=== PATIENT | female | born 2000 | race Caucasian/White ===

== ENCOUNTER 2022-01-07 20:50 | Emergency (ER) | payer OTHER, SELFPAY ==
--- NOTE | ~2022-01-07 | CT_ITS ---
EXAMINATION: CT abdomen pelvis w con DATE: 01/07/2022 23:24 INDICATION: Right lower quadrant abdominal pain. TECHNIQUE: Computed tomography (CT) of the abdomen and pelvis was performed with 100 mL Omnipaque 350 intravenous contrast. Automated exposure control and iterative reconstruction technique were employe d. The dose-length product was 201.22 mGy-cm. COMPARISON: None. FINDINGS: The visualized portions of the lung bases are clear without pneumonia or pleural effusion. The heart size is normal. No pericardial effusion. The liver, gallbladder, spleen, pancreas, adrenal glands, and left kidney are normal. There is urothelial thickening and enhancement in the right kidne y and right ureter, consistent with pyelitis. There is an intrauterine device in expected position. T here are no dilated loops of bowel. The appendix is normal. There are no pathologically enlarged lymp h nodes. There is physiologic fluid in the pelvis. The bones are unremarkable. IMPRESSION: 1. Right-sided pyelitis. Reviewed, dictated and finalized at location A. IMPRESSION: 1. Right-sided pyelitis.
[2022-01-07 20:51] VITALS: BP 125/88; PULSE 70; RESP 16; TEMP 36.4; O2SAT 99
--- NOTE | 2022-01-07 21:39 | ED.ABDPAIN ---
HPI - Abdominal Pain General Chief Complaint: Abdominal Pain Stated Complaint: RLQ pain Time Seen by Provider: 01/07/22 21:29 History of Present Illness HPI narrative: 21-year-old female presented the emergency room with right lower quadrant cramping for 2 days. Patient is also complaining of dysuria. States pain radiates around to the flank. Denies any fevers. Reports nausea and nonbilious and nonbloody vomiting x1. Denies diarrhea or constipation. Patient has an IUD in, and remarks that she has irregular menstrual cycles. Related Data Allergies Allergy/AdvReac Type Severity Reaction Status Date / Time amoxicillin Allergy Hives Verified 01/07/22 21:37 Review of Systems Review of Systems: CONSTITUTIONAL: Denies fever, chills, or sweats. EYES: Denies visual changes, redness, or discharge. ENT: Denies rhinorrhea, congestion, sore throat, or otalgia. CARDIOVASCULAR: Denies chest pain, palpitations, or edema. RESPIRATORY: Denies cough or dyspnea. GASTROINTESTINAL: Reports right lower quadrant pain GENITOURINARY: Reports dysuria SKIN: Denies rash or itching. MUSCULOSKELETAL: Denies back pain, joint pain, or myalgia. NEUROLOGIC: Denies headache, numbness, dizziness, or weakness. PSYCHIATRIC: Denies anxiety or depression. Exam Narrative: GENERAL: Well-appearing, well-nourished, no physical limitations, and in no acute distress. HEAD: Normocephalic, atraumatic. EYES: Conjunctivae normal, PERRLA and EOMI. CHEST: Clear to auscultation. No respiratory distress. No wheezes rales or rhonchi. No tenderness. HEART: Regular rate and rhythm. No murmur heard. Normal peripheral pulses. ABDOMEN: Soft, right lower quadrant tenderness, nondistended, normal active bowel sounds. Negative heel strike. Negative psoas and obturator signs BACK: No CVA tenderness EXTREMITIES: Normal range of motion. No edema. No clubbing or cyanosis SKIN: Warm, dry, no rash. No noted wounds NEURO: No focal deficits. Alert and oriented x3. MAEW. CN's II-XI intact bilaterally, normal gait PSYCH: Cooperative. Normal mood and affect. Course Vital Signs Vital signs: Vital Signs Temperature 36.4 C 01/07/22 20:51 Pulse Rate 70 01/07/22 20:51 Respiratory Rate 16 01/07/22 20:51 Blood Pressure 125/88 01/07/22 20:51 Pulse Oximetry 99 01/07/22 20:51 Temperature 36.1 C L 01/08/22 00:00 Pulse Rate 74 01/08/22 00:00 Respiratory Rate 16 01/08/22 00:00 Blood Pressure 123/68 01/08/22 00:00 Pulse Oximetry 100 01/08/22 00:00 MDM - Abdominal Pain MDM Narrative Medical decision making narrative: 21-year-old female presented with right lower abdominal pain that radiated into her right flank. Patient states have been present for [address] days[address] Denies any fever. CT scan showed possible early right pyelonephritis. Patient was hemodynamically stable and afebrile. Slight leukocytosis. 1 g of Rocephin was given IV, will send patient home with keflex. Lab Data Result diagrams: 01/07/22 21:45 01/07/22 21:45 Labs: Lab Results 01/07/22 01/07/22 01/07/22 Range/Units 21:45 21:45 21:45 WBC 12.2 H (4.5-10.0) K/mm3 RBC 4.66 (4.2-5.4) M/mm3 Hgb 13.3 (12.0-15.0) g/dL Hct 41.0 (37.0-47.0) % MCV 88.0 (80-100) fl MCH 28.5 (26-34) pg MCHC 32.4 (32-36) g/dl RDW 14.5 (11.5-14.5) % Plt Count 385 H (150-375) k/mm3 MPV 9.4 (7.4-10.4) fl Immature Gran % (Auto) 0.3 (0-0.5) % Neut % (Auto) 78.0 H (45.5-73.1) % Lymph % (Auto) 11.0 L (18.3-44.2) % Lassen % (Auto) 8.1 (2.6-8.5) % Eos % (Auto) 1.9 (0-4.4) % Baso % (Auto) 0.7 (0.2-1.2) % Lymph # (Auto) 1.34 (0.9-3.2) K/mm3 Lassen # (Auto) 1.0 H (0.1-0.6) K/mm3 Eos # (Auto) 0.2 (0-0.3) K/mm3 Baso # (Auto) 0.1 (0.0-0.1) K/mm3 Abs Immat Gran (auto) 0.04 H (0.00-0.031) K/mm3 Absolute Neuts (auto) 9.5 H (1.3-6.7) K/mm3 Absolute Nucleated RBC 0.0 (0.0-0.012) K/mm3 Nucleated
[2022-01-07 21:41] VITALS: BP 135/87; PULSE 75; RESP 16; O2SAT 100
[2022-01-07 22:00] LABS: Basophils Absolute Auto 0.1 K/mm3 (0.0-0.1); Basophils Percent Auto 0.7 % (0.2-1.2); Eosinophils Absolute Auto 0.2 K/mm3 (0-0.3); Eosinophils Percent Auto 1.9 % (0-4.4); Hemoglobin 13.3 g/dL (12.0-15.0); Immature Granulocyte Absolute 0.04 K/mm3 (0.00-0.031); Immature Granulocyte Percent A 0.3 % (0-0.5); Lymphocytes Absolute Auto 1.34 K/mm3 (0.9-3.2); Mean Corpuscular HGB Conc 32.4 g/dl (32-36); Mean Corpuscular Hemoglobin 28.5 pg (26-34); Mean Platelet Volume 9.4 fl (7.4-10.4); Monocytes Percent Auto 8.1 % (2.6-8.5); Neutrophils Absolute Auto 9.5 K/mm3 (1.3-6.7); Platelet Count Result 385 k/mm3 (150-375); Red Blood Count 4.66 M/mm3 (4.2-5.4); Red Cell Distribution Width 14.5 % (11.5-14.5); White Blood Count 12.2 K/mm3 (4.5-10.0)
[2022-01-07 22:01] LABS: Appearance Urine Cloudy (Clear); Bilirubin Urine Negative (Negative); Blood Urine 3+ (Negative); Color Urine Yellow (Yellow); Glucose Urine UA Negative (Negative); Ketones Urine Trace mg/dL (Negative); Leukocyte Esterase Ur 3+ LEU/UL (Negative); Nitrate Urine Negative (Negative); Protein Urine 2+ mg/dL (Negative); Specific Grav Ur 1.015 (1.001-1.035); Urobilinogen Urine 0.2 mg/dL (<2.0); pH Urine 5.5 (5.0-9.0)
[2022-01-07 22:06] LABS: Add Urine Microscopic? YES; Bacteria Urine 1+ /hpf; Mucus Urine Rare /lpf; RBC Urine >75 /hpf (0-2); Squamous Epithelial Cell Urine Rare /hpf (Few); WBC Urine >75 /hpf
[2022-01-07 22:11] LABS: Alanine Aminotransferase 12 U/L (6-35); Albumin Level 4.9 g/dL (3.7-5.6); Alkaline Phosphatase 118 U/L (45-116); Anion Gap 13 mmol/L (8-16); Aspartate Amino Transferase 21 U/L (14-36); Bilirubin,Total 0.5 mg/dL (0.2-1.3); Blood Urea Nitrogen 5 mg/dL (8-21); Calcium 9.1 mg/dL (8.9-10.7); Carbon Dioxide 25 mmol/L (22-30); Chloride 99 mmol/L (98-107); Estimated CRCL calculation 81 ml/min; Estimated Glomerular Filt Rate > 60; Glucose 129 mg/dL (65-110); Lipase 14 U/L (23-300); Potassium 4.1 mmol/L (3.4-5.0); Sodium 137 mmol/L (134-143)
[2022-01-07] MEDS: MORPHINE SULFATE (*CRX) 2 MG/ML INJ IV PUSH (22:52)
[2022-01-07] MEDS: ONDANSETRON INJ 4 MG/2 ML VIAL IV PUSH (22:52)
[2022-01-07 22:53] VITALS: PULSE 62; RESP 18; O2SAT 100
--- NOTE | 2022-01-07 23:57 | PC.NURSE ---
Report given to Shayy CHAVEZ
[2022-01-08] VITALS: BP 123/68; PULSE 74; RESP 16; TEMP 36.1; O2SAT 100
[2022-01-08 01:10] VITALS: BP 130/90; PULSE 65; RESP 18; TEMP 36.1; O2SAT 100
== END 2022-01-08 01:12 | disposition home or self-care (01) ==
PROVIDERS: Emergency Provider Nurse Practitioner Family
DX: N12 Tubulo-interstitial nephritis, not specified as acute or chronic (principal)
CPT/HCPCS: 36415; 74177; 80053; 81001; 81025; 83690; 85025; 87077; 87086; 87186; 96365; 96375; 99284; J0696; J2270; J2405; Q9967

== ENCOUNTER 2024-12-10 20:11 | Inpatient (IN) | payer BC, SELFPAY ==
[2024-12-10] VITALS (8 sets, daily range): BP systolic 100–123; BP diastolic 49–79; PULSE 122–133; RESP 14–16; TEMP 36.7; O2SAT 100
--- NOTE | ~2024-12-10 | XR_ITS ---
EXAMINATION: XR chest 1V portable 12/11/2024 13:00 INDICATION: Leukocytosis PROCEDURE: AP portable chest COMPARISON: No prior studies for comparison. FINDINGS: The lungs are clear. The cardiomediastinal silhouette is within normal limits. There are no pleural effusions. There is no pneumothorax suspected. IMPRESSION: 1: NO ACUTE CARDIOPULMONARY DISEASE. Reviewed, dictated and finalized at location A.
[2024-12-10 20:48] LABS: Hematocrit 35.7 % (37.0-47.0); Hemoglobin 12.1 g/dL (12.0-15.0); Mean Corpuscular HGB Conc 33.9 g/dl (32-36); Mean Corpuscular Hemoglobin 29.4 pg (26-34); Mean Corpuscular Volume 86.9 fl (80-100); Platelet Count Result 327 k/mm3 (150-375); Red Blood Count 4.11 M/mm3 (4.2-5.4); White Blood Count 22.9 K/mm3 (4.5-10.0)
[2024-12-10 20:56] LABS: BEDSIDEPREGUCG Negative (Negative)
[2024-12-10 20:57] LABS: Add Urine Microscopic? NO; Appearance Urine Clear (Clear); Glucose Urine UA 3+ mg/dL (Negative); Leukocyte Esterase Ur Negative LEU/UL (Negative); Nitrate Urine Negative (Negative); Specific Grav Ur 1.029 (1.001-1.035)
[2024-12-10] MEDS: SODIUM CHLORIDE 0.9% IV 1,000 ML 999 ML IV CONT ×3 (21:08→23:04)
[2024-12-10 21:13] LABS: Alanine Aminotransferase 27 U/L (6-35); Albumin Level 4.1 g/dL (3.5-5.1); Alkaline Phosphatase 93 U/L (38-126); Anion Gap 21 mmol/L (4-12); Aspartate Amino Transferase 31 U/L (14-36); Bilirubin,Total 0.9 mg/dL (0.2-1.3); Blood Urea Nitrogen 18 mg/dL (7-17); Calcium 8.8 mg/dL (8.4-10.2); Carbon Dioxide 9 mmol/L (22-30); Chloride 102 mmol/L (98-107); Estimated CRCL calculation 73 ml/min; Estimated Glomerular Filt Rate > 60; Glucose 441 mg/dL (65-110); Lipase 14 U/L (23-300); Potassium 5.6 mmol/L (3.4-5.0); Sodium 132 mmol/L (137-145); Total Protein 6.7 g/dL (6.3-8.2)
--- NOTE | 2024-12-10 21:13 | PC.NURSE ---
2nd NS bolus initiated. 1st NS bolus hanging, not documented and complete. This RN updated MAR to reflect NS bolus x2.
[2024-12-10 21:14] LABS: Band Neutrophils Percent 5 % (0-6); Lymphocytes Absolute Manual 0.45 K/mm3 (1.1-4.5); Lymphocytes Percent Manual 2.0 % (18-44); Monocytes Absolute Manual 1.37 K/mm3 (0.1-0.90); Monocytes Percent Manual 6 % (3-9); Neutrophils Absolute Manual 21.06 K/mm3 (1.3-6.7); Neutrophils Percent Manual 87 % (46-73); Total Cells Counted 100
[2024-12-10 21:15] LABS: Schistocytes None Seen
--- OUTSIDE RECORDS SUMMARY | 2024-12-10 21:20 | XMS_ITS | Clinical Summary ---
Author Organization [facility] Address Formerly [facility], [facility] [place] [address] Care Team Providers Care Foundry Manager Name Role Phone Smith Carrasco DO Primary Care Provider [phone] Allergies Active Allergy Reactions Criticality Noted Date Comments Amoxicillin Hives 12/31/2018 Medications LANTUS SOLOSTAR 100 UNIT/ML injection (PEN) Inject 27 Units into the skin daily. 9 Active GLUCAGON EMERGENCY 1 MG injection Use as directed 9 Active HUMALOG 100 UNIT/ML Solution Cartridge Inject 4.5 Units into the skin daily with breakfast. 8 Active fluoxetine 10 MG capsule take 10 mg by mouth daily, 0 9 Active Insulin Lispro (HUMALOG CARTRIDGE 100 U/ML SC SOLN) Inject 5 units subcutaneously 2 times daily with lunch and dinner. Active Active Problems Problem Noted Date Diagnosed Date Hyperglycemia 01/03/2019 Ketonuria 01/03/2019 Sinus bradycardia 01/01/2019 Uncontrolled insulin dependent type 1 diabetes m ellitus 12/31/2018 Hematemesis 12/31/2018 Diabetes mellitus ([facility]) Family History Relation Status Comments Father Alive Mother Alive Social History Tobacco Use Types Packs/Day Years Used Date Smoking Tobacco: Never Smokeless Tobacco: Never Alcohol Use Standard Drinks/Week Comments No 0 (1 standard drink = 0.6 oz pur e alcohol) AUDIT-C Answer Date Recorded Frequency of Alcohol Consumption Never 01/01/2019 Average Number of Drinks Not on file 019 Frequency of Binge Drinking Not on file 12/19 Comments Unknown Sex and Gender Information Value Date Recorded Sex Assigned at Not on file Legal Sex Female 8:56 PM [employer] Gender Identity Not on file Sexual Orientation Not on file Last Filed Vital Signs Vital Sign Reading Time Taken Comments Blood Pressure 119/77 10/09/2021 7:24 PM CDT Pulse 122 10/09/2021 7:24 PM CDT Temperature 36.7 C (98.1 F) 10/09/2021 7:24 PM CDT Respiratory Rate 16 10/09/2021 7:24 PM CDT Oxygen Saturation 97% 10/09/2021 7:24 PM CDT Inhaled Oxygen Concentration - - Weight 68.1 kg (150 lb 2.1 oz) 10/09/2021 7:24 P M CDT Height 160 cm (5' 3) 10/09/2021 7:24 PM CDT Body Mass Index 26.59 10/09/2021 7:24 PM CDT Plan of Treatment Health Maintenance Due Date Last Done Comments Cervical Cancer Screening Pap Smear (Age 21 to 29) Every 3 Years 2002 Cervical Cancer Screening 2002 Kidney Health Evaluation 2002 Hemoglobin A1C 2002 Lipid Panel 2002 Annual Physical 2005 DTaP, Tdap and Td Vaccines (5 - Tdap) 2013 11/30/2003, 04/08/2003, 01/30/2003, Additional history exists HPV Vaccines (1 - 3-dose series) 2017 Meningococcal B Vaccine (1 of 2 - Standard) 2018 Diabetes: Retinopathy Eye Exam 2020 Hepatitis C 2020 Hepatitis B Vaccines (1 of 3 - 19+ 3-dose series) 2021 Pneumococcal Vaccine: Pediatrics (0 to 5 Years) and At-Risk Patients (6 to 49 Years) (1 of 2 - PCV) 2021 COVID-19 Vaccine (1 - 2023-25 season) 2024 Meningococcal Vaccine Completed 01/29/2020, 014 RSV Immunizations Under 20 Months Aged Out No longer eligible based on patient's age to complete this topic Insurance Advance Directives * Full Code (Latest Code Status on File) Date Activated Date Inactivated Comments 01/01/2019 1:56 AM 01/01/2019 7:51 PM Care Teams Foundry Manager Relationship Specialty Start Date End Date Smith Carrasco DO PCP - General FAMILY PRACTICE 10/09/21
--- OUTSIDE RECORDS SUMMARY | 2024-12-10 21:20 | XMS_ITS | Data Portability ---
Author Organization [facility], [address] [facility] ([place]) Address [address] [place] [address] Care Team Providers Care Dye Expert Name Role Phone COLE MOHAN Primary Care Provider [phone] Assessment Encounter Date Assessment Date Assessment LastModified by Organization Details LastModified Time 01/03/2024 01/03/2024 ASSESSMENT Type 1 diabetes mellitus with hyperglycemia Previous history of questionable noncompliance of insulin administration BMI 20 PLAN 1. Glycemic goals were reviewed in detail today with the patient. Changes in diabetes program as outlined in diabetes management flowsheet. Parameters for communicating the patient s glucose values to our office were discussed. Potential microvascular and macrovascular complications of hyperglycemia were reviewed with the patient at the time of the appointment. 2. Potential benefits, risks, and adverse effects of the patient s endocrine medications were reviewed at the time of the appointment. We also reviewed appropriate timing of the patient s endocrine medications with respect to meals and other medications. The patient verbalized/indicat ed understanding of all education presented. 3. Instructed on plan of care. Discussed signs and symptoms to report. Patient/caregiver aware and agreeable with plan. Return to clinic if signs/symptoms do not improve, worsen, or if new symptoms develop. The importance of achieving/maintain ing a normal BMI was discussed. 4. Diagnostic studies as outlined in this note. Further recommendations will be based on these results as well as the patient s clinical course. 5. Return to endocrine clinic in 4 months. Complete labs today. 6. Multiple changes to diabetes program as outlined in the diabetes management flowsheet. 7. New setting reflected below. Basal Bolus 00: 0.9 1:15 04: 0.95 07: 0.75 1:12 12p: 1.05 Target 120 ICR 1:50 IOB 4 hrs 8. Blood pressure at goal 118/78 9. The patient is an ideal candidate for a continuous glucose monitor (CGM). A continuous glucose monitor will improve patient safety by alerting the patient to evolving hypoglycemia. Furthermore, a personal CGM will allow the patient to more aggressively treat hyperglycemia with the assurance the patient will be notified of any developing hypoglycemia. Lessening the degree of hyperglycemia can reduce the risks of microvascular/macr ovascular complications from diabetes mellitus. 10. Emphasized importance for patient to bolus for meals and for better glucose control. 11. [employer]ic's license form filled out and returned to patient. [email or web address] Not available 01/03/2024 12:29:52 Plan of Treatment Reminders Order Date Submit Date Provider Last Modified By Organization Details Last Modified Time Details Appointments None recorded. Lab TSH, serum or plasma 2023 024 [facility], [address] [place] [address], [id number], 4 17:31:50 microalbumi n, urine 2023 024 [facility], [address] [place] [address], [id number], 4 20:15:49 lipid panel, serum 2023 024 [facility], [address] [place] [address], [id number], 4 17:31:45 vitamin B12, serum 2023 024 [facility], [facility] [address] [place] [address], [id number], 4 17:31:52 CMP, serum or plasma 2023 024 [facility], [address] [place] [address], [id number], 4 17:31:48 hemoglobin A1c + average glucose, QN, blood 2023 024 [email or web address] [facility], [address] [place] [address], [id number], 4 16:10:08 lipid panel, serum 2023 024 [email or web address] [facility], [address] [place] [address], [id number], 4 16:10:07 general health panel 2023 024 [email or web address] [facility], [address] [place] [address], [id number], 5 09:49:46 urinalysis complete, reflex culture 2023 [email or web address] [facility], [address] [place] [address], [id number], 5 09:49:46 Referral None recorded. Procedures None recorded. Surgeries None recorded. Imaging None recorded. Medication Orders trazodone 50 mg tablet 2023 024 [id number], [address], [address], 16:28:48 Patient TargetsNo targets recorded. Patient Instructions Encounter Date Encounter Id Patient Instructions Last Modified By Organization Details Last Modified Time 10/25/2023 [id number] This is a pleasant 23-year-old patient. Today she is here for a physical. She has a history of type 1 diabetes. She reports her glucose averages 90-200. She was previously seen Dr. Estrada's nurse practitioner. She would like to get in to a new provider since they left. She has concerns of insomnia. She is struggled with anxiety and panic attacks. Occasionally she will feel somewhat down but denies hopelessness or suicidal homicidal ideations. 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 She is making A's and B's. At times she feels like she struggles with the focus or the concentration. She has been on BuSpar, sertraline and several other medications in the past. She either noted side effects or did not see improvement. She was in counseling but did not feel like it was significantly helpful. Review of systems: General: Denies systemic symptoms, lethargy. HEENT: Denies eye symptoms, pain in or around the eyes, worsening vision, double vision, itchy eyes, loss of hearing, epistaxis, sore throat, mouth sores, hoarseness. Cardiovascular: Denies chest pain, shortness of breath, or chest pressure with exertion. Denies palpitations or claudication. Denies lower leg edema. Pulm: Denies dyspnea, cough, hemoptysis, wheezing. Gastrointestinal: Denies appetite changes, heartburn, dysphagia, nausea, diarrhea, constipation, abdominal pain, hematochezia. Genitourinary: Denies hematuria, urinary frequency, urgency. Skin: Denies rash, changing lesions, skin sores. Breasts: Denies breast pain, lumps. Musculoskeletal: Denies joint pain, swelling, stiffness, weakness. Neurological: Denies dizziness, recurrent headaches, syncope, memory lapses or loss, poor coordination, ataxia, difficulties in speech. Hematologic: Denies easy bruising or bleeding. Endocrine: Denies intolerance to heat or cold. GENERAL: Patient is pleasant. She's sitting comfortably on examination table. She is alert and oriented. Her affect is normal. HEENT: Normal external auditory canals. Eyes: PERRLA. EOMI. Sclera are clear. Nares patent. Mouth: Moist mucous membranes. No tonsillar hypertrophy or exudate. NECK: No adenopathy. Thyroid is normal in size. CARDIOVASCULAR: Regular rate and rhythm. Normal S1 and S2. No murmurs. RESPIRATORY: Clear to auscultation. No wheezing, rhonchi, or rales. ABDOMEN: Positive bowel sounds. Soft, nontender, nondistended. No organomegaly, no masses or nodules. SKIN: No abnormal rash or lesion. EXTREMITIES: No edema. NEURO: Cranial nerves 2 through 12 are intact. MUSCULOSKELETAL: Strength is 5 out of 5 in all extremities. Patient ambulates without difficulty. Plan: 1. General health maintenance. Patient follows with gynecology for ACUTE CARE REGISTERED NURSE care. Labs were added. Adacel was updated. She declines HPV vaccine. 2. Type 1 diabetes. Follow-up with endocrinology. 3. Anxiety. She has been on several medications in the past. She is agreeable to GeneSight testing. Will pursue accordingly. She was given a handout on coping skills. 4. Insomnia. Discussed the option of trazodone at bedtime. She was given a handout on sleep hygiene techniques. 5. Return to clinic in 3 to 4 weeks for reevaluation, sooner if needed. Patient voiced understanding [email or web address] Not available 10/25/2023 16:30:43 11/06/2023 [id number] Call with heavy bleeding, any concerns. If she decides she would like to have another IUD for cycle control at some point, ok to call. Schedule an annual for the next 3-4 months. [email or web address] Not available 11/06/2023 12:20:12 Reason for Referral None Reported. Results Created Date Observation Date Name Description Value Unit Range Abnormal Flag Note LastModifiedBy Organization Detail LastModifiedTime 01/03/20 24 01/03/2024 hemog lobin A1C, finge rstic k fingerstick A1C endo Not Available [facility] [address] [place] [address], [id number], 01/03/2024 11:42:18 01/03/20 24 01/03/2024 hemog lobin A1C, finge rstic k hemoglobin A1C, finger 9.7 %_A1C 4.3 - 5.6 high Not Available [facility] [address] [place] [address], [id number], 01/03/2024 11:42:18 01/03/20 24 01/03/2024 hemog lobin A1C, finge rstic k fingerstick estimated ave [address] Not Available [facility] [address] [place] [address], [id number], 01/03/2024 11:42:18 01/03/20 24 01/03/2024 lipid panel , serum lipid profile Not Available [facility] [address] [place] [address], [id number], 01/03/2024 17:31:45 01/03/20 24 01/03/2024 lipid panel , serum cholesterol 122 mg/dL <25-20 0 Not Available [facility] [address] [place] [address], [id number], 01/03/2024 17:31:45 01/03/20 24 01/03/2024 lipid panel , serum triglyceride 35 mg/dL 15-200 Not Available [facility] [address] [place] [address], [id number], 01/03/2024 17:31:45 01/03/20 24 01/03/2024 lipid panel , serum HDL 62 mg/dL >40 Not Available [facility] [address] [place] [address], [id number], 01/03/2024 17:31:45 01/03/20 24 01/03/2024 lipid panel , serum LDL, calculated 53 mg/dL 5-100 Not Available [facility] [address] [place] [address], [id number], 01/03/2024 17:31:45 01/03/20 24 01/03/2024 lipid panel , serum VLDL 7 mg/dL 1-40 Not Available [facility] [address] [place] [address], [id number], 01/03/2024 17:31:45 01/03/20 24 01/03/2024 lipid panel , serum chol/HDL 2.0 ratio 0.0-4. 4 Not Available [facility] [address] [place] [address], [id number], 01/03/2024 17:31:45 01/03/20 24 01/03/2024 CMP, serum or plasm a comp. met. panel Not Available [facility] [address] [place] [address], [id number], 01/03/2024 17:31:48 01/03/20 24 01/03/2024 CMP, serum or plasm a sodium 138 mmol/ L 136-14 6 Not Available [facility] [address] [place] [address], [id number], 01/03/2024 17:31:48 01/03/20 24 01/03/2024 CMP, serum or plasm a potassium 3.8 mmol/ L 3.5-5. 1 Not Available [facility] [address] [place] [address], [id number], 01/03/2024 17:31:48 01/03/20 24 01/03/2024 CMP, serum or plasm a chloride 104 mmol/ L 98-110 Not Available [facility] [address] [place] [address], [id number], 01/03/2024 17:31:48 01/03/20 24 01/03/2024 CMP, serum or plasm a CO2 28 mEq/L 20-32 Not Available [facility] [address] [place] [address], [id number], 01/03/2024 17:31:48 01/03/20 24 01/03/2024 CMP, serum or plasm a anion gap 10 mmol/ L 10-22 Not Available [facility] [address] [place] [address], 94519, 01/03/2024 17:31:48 01/03/20 24 01/03/2024 CMP, serum or plasm a glucose 61 mg/dL 70-100 low Not Available [facility] [address] [place] [address], [id number], 01/03/2024 17:31:48 01/03/20 24 01/03/2024 CMP, serum or plasm a calcium 9.2 mg/dL 8.4-10 .4 Not Available [facility] [address] [place] [address], [id number], 01/03/2024 17:31:48 01/03/20 24 01/03/2024 CMP, serum or plasm a total protein 6.7 g/dL 6.4-8. 3 Not Available [facility] [address] [place] [address], [id number], 01/03/2024 17:31:48 01/03/20 24 01/03/2024 CMP, serum or plasm a albumin 4.3 g/dL 3.5-5. 3 Not Available [facility] [address] [place] [address], 65971, 01/03/2024 17:31:48 01/03/20 24 01/03/2024 CMP, serum or plasm a ALP 68 U/L 44 - 127 Not Available [facility] [address] [place] [address], 63583, 01/03/2024 17:31:48 01/03/20 24 01/03/2024 CMP, serum or plasm a AST (SGOT) 15 U/L 10-40 Not Available [facility] [address] [place] [address], [id number], 01/03/2024 17:31:48 01/03/20 24 01/03/2024 CMP, serum or plasm a total bilirubin 0.5 mg/dL 0.2-1. 0 Not Available [facility] [address] [place] [address], 49594, 01/03/2024 17:31:48 01/03/20 24 01/03/2024 CMP, serum or plasm a ALT (SGPT) 12 U/L 8-35 Not Available [facility] [address] [place] [address], [id number], 01/03/2024 17:31:48 01/03/20 24 01/03/2024 CMP, serum or plasm a BUN 10 mg/dL 7-21 Not Available [facility] [address] [place] [address], [id number], 01/03/2024 17:31:48 01/03/20 24 01/03/2024 CMP, serum or plasm a creatinine 0.9 mg/dL 0.7-1. 3 Not Available [facility] [address] [place] [address], 68332, 01/03/2024 17:31:48 01/03/20 24 01/03/2024 CMP, serum or plasm a GFR(non-afri can central african) 84 Not Available [facility] [address] [place] [address], [id number], 01/03/2024 17:31:48 01/03/20 24 01/03/2024 CMP, serum or plasm a GFR() 102 (DISTRIBUTION SYSTEM OPERATOR LIZZIE KIDNE Y DISEA SE HAS A GFR LESS THAN 60 ML/WV N/1.7 3 MM FOR A PERIO D OF THREE MONTH S OR MORE. ) Not Available [facility] [address] [place] [address], [id number], 01/03/2024 17:31:48 01/03/20 24 01/03/2024 TSH, serum or plasm a TSH; reflex to free T4 Not Available [facility] [address] [place] [address], [id number], 01/03/2024 17:31:50 01/03/2001/03/2024 TSH, serum or plasm a TSH3 5.401 uIU/m L .340-5 .600 Not Available [facility] [address] [place] [address], 32192, 01/03/2024 17:31:50 01/03/2001/03/2024 vitam in B12, serum vitamin B12 434 pg/mL 180-91 4 <145 pg/mL = Defic ient 145 - 180 pg/mL = Inter media te Not Available [facility] [address] [place] [address], 16051, 01/03/2024 17:31:51 01/03/20 24 01/03/2024 micro album in, urine microalbumin ,random panel Not Available [facility] [address] [place] [address], [id number], 01/03/2024 20:15:49 01/03/2011 0101/03/2024 micro album in, urine microalbumin random 5.4 mg/dL Not Available [facility] [address] [place] [address], 24713, 01/03/2024 20:15:49 01/03/20 24 01/03/2024 micro album in, urine creatinine, urine random 150 mg/dL Refer ence range not estab lishe d for other than 24 hour colle ction . Not Available [facility] [address] [place] [address], [id number], 01/03/2024 20:15:49 01/03/20 24 01/03/2024 micro album in, urine microalb/cre at ratio 36 ug/mg (Micr oalbu min/C reati nine Ratio : Lizet l: <30 UG/MG Creat Micro album inuri a: 30-30 0 UG/MG Creat Clini bee Album inuri a: >300 UG/MG Creat The class ifica tion of a patie nt's prote inuri a shoul d be based upon at least 2 or 3 abnor mal resul ts colle cted withi n a 3 to 6 month time frame . *No lizet l range s have been estab lishe d for rando m Micro album in or Creat inine .) Not Available [facility] [address] [place] [address], 51704, 01/03/2024 20:15:49 03/18/20 24 06/25/2023 imagi ng/di agnos tic resul t No observ ation record ed. [email or web address] Not Available 20:33:06 09/16/19 25 06/01/2020 imagi ng/di agnos tic resul t No observ ation record ed. [email or web address] Not Available 19:12:47 09/16/19 25 06/01/2020 imagi ng/di agnos tic resul t No observ ation record ed. [email or web address] Not Available 19:12:48 07/06/20 25 04/20/2019 imagi ng/di agnos tic resul t No observ ation record ed. [email or web address] Not Available 0 11/23/2024 10:06:55 Result Notes None recorded. Problems Name Problem SNOMED Code Status Onset Date Resolution Date Notes Provider Name and Address Organization Details Recorded Time Type 1 diabetes mellitus 90398337 Active 2023 Managed by endocrinol delmy Johnson PA-C [address] [facility], [place], [address], [facility] 4 16:13:33 Mixed anxiety and depressive disorder 585379154 Active 2023 Genesight testing performed Dec 2023 Fidelina Johnson PA-C [address] , [place], [address], [facility] 4 09:28:26 Hyperlipid emia 62034878 Active 2023 Fidelina Johnson PA-C [address] , [place], [address], [facility] 4 16:13:52 Vitamin D deficiency 62581199 Active 2023 Fidelina Johnson PA-C [address] , [place], [address], [facility] 4 16:14:05 Insomnia 992577729 Active 2023 Fidelina Johnson PA-C [address] , [place], [address], [facility] 4 16:28:17 Anxiety 74612104 Active 2023 Dina Miranda [facility] 4 17:03:57 Removal of intrauteri ne contracept dominick device from uterine cavity Active 20[facility] 4 16:37:07 Problem Notes None recorded. Procedures Surgical History Date Name Laterality Status Provider Name and Address Organization Details Recorded Time 4 SC IUD Removal completed Hannah Arora MD [address] [place] [address], [address], [facility] 11/06/2023 12:19:18 Imaging Results None recorded. Procedure Notes None recorded. Medical Equipment None Reported. Allergies Allergen ID Allergen Name Allergen Category Reaction Reaction Severity Criticality Documentation Date Start Date Code Code System Note Provider Name and Address Organization Details Recorded Time 063441 Amoxil medicatio n rash Not available Not available 06/18/2023200516 9 RxNorm React ion: Rash; Not Available [facility] 4 22:59:21 Medications Name Sig Start Date Stop Date Status Note LastModified by Organization Details LastModified Time trazodone 50 mg tablet TAKE 1/2 - 1 TABLET BY MOUTH AT BEDTIME 2024 active Not Available Not Available Not Avai lable Humalog U-100 Insulin 100 unit/mL subcutaneou s solution inject up to 50 units via insulin pump 2024 active Not Available Not Available Not Avai lable escitalopra m 10 mg tablet TAKE 1 TABLET BY MOUTH EVERY DAY 2024 active Not Available Not Available Not Avai lable Dexcom G6 Sensor device USE TO CHECK BLOOD SUGAR AND CHANGE EVERY 10 DAYS 05/15 completed Not Available Not Available Not Available Dexcom G6 Transmitter device USE TO CHECK BLOOD SUGAR AND CHANGE THE TRANSMITT ER EVERY 3 MONTHS 05/15 completed Not Available Not Available Not Available Omnipod 5 G6 Pods (Gen 5) subcutaneou s cartridge CHANGE pod every THREE DAYS as directed. active Not Available Not Available No t Available Omnipod 5 G6 Intro Kit (Gen 5) subcutaneou s cartridge with controller CHANGE POD every 3 DAYS as directed active Not Available Not Available No t Available Dexcom G7 Sensor Change sensor every 10 days 2023 active Not Available Not Available Not Avai lable Vitals Date Recorded Body height Body mass index (BMI) Body weight Heart rate Oxygen saturation Oxygen saturation in Arterial blood by Pulse oximetry Systolic And Diastolic Provider Name and Address Organization Details Last Updated DateTime 4 163.83 cm 19.5 kg/m2 43737.2 2 g 73 /min 100 % 100 % 110/84 mm[Hg] Carly Daly [facility] 16:00:22 Date Recorded Body height Systolic And Diastolic Provider Name and Address Organization Details Last Updated DateTime 11/06/2023 163.83 cm 116/72 mm[Hg] Teresa VanessaMarcel g [facility] 11/06/2023 12:12:21 Date Recorded Body height Body mass index (BMI) Body weight Heart rate Systolic And Diastolic Provider Name and Address Organization Details Last Updated DateTime 01/03/2024 163.83 cm 20.1 kg/m2 24974.49 g 87 /min 118/78 mm[Hg] Shira Brothers [facility] 01/03/2024 10:44:41 Social History Question Answer Notes LastModified by [facility] ion Details LastModified Time Do You Have An Advance Directive? No [email or web address] Information not available 11/06/2023 What Is Your Level Of Caffeine Consumption? None [email or web address] Information not available 11/06/2023 How Many Times Per Week Do You Exercise? Less Than 1 Time Per Week [email or web address] Information not available 11/06/2023 E-cigarettes Or Vaporization Device? Uses Nicotine Containing Device [email or web address] Information not available 10/25/2023 Do You Have A Medical Power Of Forensic Photographer? No [email or web address] Information not available 11/06/2023 What Was The Date Of Your Most Recent Tobacco Screening? 11/06/2023 [email or web address] Information not available 11/06/2023 What Is Your Relationship Status? Single [email or web address] Information not available 11/06/2023 Sex: Unknown Functional Status Question Answer Note LastModified by [employer] ion Details LastModified Time How many times per week do you consume alcohol? Less than 1 time per week [email or web address] Information not available 11/06/2023 Do you use any illicit or recreational drugs? No [email or web address] Information not available 11/06/2023 What is your level of alcohol consumption? Occasional [email or web address] Information not available 11/06/2023 Are you currently employed? No [email or web address] Information not available 11/06/2023 What is your occupation? Student [email or web address] Information not available 11/06/2023 What is your exercise level? Occasional [email or web address] Information not available 11/06/2023 Mental Status None recorded. Family History Relationship Description Onset Age of this Age Resolved Age Notes LastModified by Organization Details LastModified Time Father No current problems or disability [email or web address] Not available 10/24 15:51:24 Mother No current problems or disability [email or web address] Not available 10/24 15:51:24 Medical History Condition Response High Blood Pressure N COPD N Depression N Anxiety Disorder N Arthritis N Cancer N Stroke N Fibromyalgia N Kidney Disease N Bleeding Disorder N Asthma N Seizures N Attention-deficit Hyperactivity Disorder N Thyroid Problems N Anemia N Diabetes Y Hyperlipidemia N Heart Disease N Osteoporosis N Gynecological History Statement/Question Response Age at Menarche 15 Current Control Method IUD Obstetrics History GPAL:G 0 P 0 0 0 0 Immunizations Vaccine Type Date Status Note Provider Nam e and Address Organization Details Recorded Time Hib-Hep B 3 completed Carly Daly [facility] 10/25/2023 16:00:01 Hib-Hep B 4 completed Carly Daly [facility] 10/25/2023 16:00:01 Hib-Hep B 3 completed Carly Daly [facility] 10/25/2023 16:00:01 IPV 3 completed Carly Daly [facility] 10/25/2023 16:00:01 IPV 3 completed Carly Daly [facility] 10/25/2023 16:00:01 IPV 3 [facility] 16:00:01 MMR 4 completed Carly Daly [facility] 10/25/2023 16:00:01 COVID-19, mRNA, LNP-S, PF, 30 mcg/0.3 mL dose 1 completed [facility] 16:00:01 COVID-19, mRNA, LNP-S, PF, 30 mcg/0.3 mL dose 1 completed Carly Daly null, [facility] 10/25/2023 16:00:01 pneumococcal conjugate PCV 7 5 completed Carly Daly null, [facility] 10/25/2023 16:00:01 pneumococcal conjugate PCV 7 3 completed Carly Daly null, [facility] 10/25/2023 16:00:01 pneumococcal conjugate PCV 7 3 completed Carly Daly null, [facility] 10/25/2023 16:00:01 pneumococcal conjugate PCV 7 3 completed Carly Daly null, [facility] 10/25/2023 16:00:01 Tdap 4 completed Carly Daly null, [facility] 10/25/2023 16:00:01 varicella 4 completed Carly Daly null, [facility] 10/25/2023 16:00:01 meningococcal MCV4P 4 completed Carly Daly null, [facility] 10/25/2023 16:00:01 meningococcal MCV4P 0 completed Carly Daly null, [facility] 10/25/2023 16:00:01 DTaP 3 completed Carly Daly null, [facility] 10/25/2023 16:00:01 DTaP 4 completed Carly Daly null, [facility] 10/25/2023 16:00:01 DTaP 3 completed Carly Daly null, [facility] 10/25/2023 16:00:01 DTaP 3 completed Carly Daly null, [facility] 10/25/2023 16:00:01 Tdap 4 completed Fidelina Johnson PA-C [address], [address], [facility] 10/25/2023 17:10:06 Past Encounters Encounter ID Performer Location Encounter Start Date Encounter Closed Date Diagnosis/Indication Diagnosis SNOMED-CT Code Diagnosis ICD10 Code Diagnosis Note [id number] Fidelina Johnson PA-C [address] ([place]) [address] [facility],[address] [place] [address] 10/25/2023 15:43:57 10/25/2023 16:33:21 Adult health examination 902354367 Z00.00 Type 1 henny betes mellitus [id number] E10.8 Insomnia [id number] G47.0 0 Active immunization [id number] Z23 Anxiety [id number] F41.9 [id number] Hannah Arora MD [facility] ([place]) [address] [place] [address] 1 [place] [address] 11/06/2023 11:51:44 11/06/2023 12:31:21 Removal of intrauterine contraceptive device from uterine cavity [id number] Z30.432 Additional diagnosis detail: Encounter for removal of intrauteri ne contracept dominick device [id number] [facility] [place]) [address] [place] [address] 01/03/2024 10:31:17 01/03/2024 11:13:12 Type 1 diabetes mellitus 80130220 E10.8 Health Concerns Section Related Observation LastModified by Organization Detai ls LastModified Time None Recorded Concern Status LastModified by Organization Details LastModified Time None Recorded Advance Directives Directive N: Payers Insurance Date Sequence Insurance Name Policy Number Policy Cisneros Covered Member ID Cisneros Member ID Guarantor Name 05/01/2024 1 [facility] [id number] Scott Braden [id number] Naty Braden Notes Date Note Type Note Provider Name and Address Organization Details Recorded Time 4 text/html Naty Sampsonis a 23 year oldfemalepresenting for care. Past Gynecology History: Still has a menstrual cycle:yes Fidelina Johnson PA-C [address] [place], [address], [facility] 10/25/2023 17:14:18 4 text/html Patient is a 23 year old here today for an IUD removal. Kyleena IUD was inserted on 06/19/18. Patient declines control at this time, same sex relationship. Hannah Arora MD [address] [place] [address], [phone], [facility] 11/06/2023 12:25:05 4 text/html Naty Garcias, is a pleasant 23-year-old female who returns to endocrine clinic for management of type 1 diabetes mellitus. She was last seen in clinic on 11/16/2022. 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 Patient has the Dexcom continuous glucose monitor (CGM) and the Omnipod 5. Pump data was downloaded for review. For the weeks of December 20-January 02 patient blood glucose was > 250: 50%, 181-250: 20%, 70-180 (target): 26%, 54-69: 6%. Average blood glucose was 251 with a SD of 109. She received 21 units in basal and 1.4 units in bolus. Her CGM was active 70.8% of the time and she was in manual mode 92%. Hypoglycemia: States she usually drops around 9-10am. Patient does not bolus for meals because she believes it drops her sugars. Unawareness; currently denies any hypoglycemic unawareness, but does have a history of it Nocturnal; denies Glucagon: Does have a current glucagon kit, denies use ER visit for hypoglycemia within the past 3 months? Denies Current diabetic program: OmniPod 5 pump. Current settings:Basal Bolus00: 0.8 1:1004: 0.907: 0.85 1:812p: 1 Target 120ICR 1:50IOB 4 hrs Hemoglobin A1c in office A1c 01/03/2024: 9.7%; last A1c 11/16/2022: 8.3% Hemoglobin A1c trend: 8.8% March 2022, 9.9% August 2021,, 12.1% on 06/03/2021 Compliance with taking diabetic medications-noted above Injection sites: Upper arm and abdomen for injections and lower back for Dexcom sensor placement rotating sites, denies complications Hospital/recent illness: Denies recent Prednisone; denies Recent blood transfusions; denies Tobacco use; never a smoker Diet; has not been following a lower carbohydrate Sugared beverages; denies routine consumption Exercise; no specific exercise routine Naty is 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 She also feels her diabetes continues to be better managed as she has been spending more time with a friend/roommate that also has type 1 diabetes mellitus and is on an OmniPod insulin pump. Naty denies any plans for in the future. Kyleena intrauterine device in place was removed 11/05/2024. Patient is not currently on control, but is in a same sex relationship. The above information was reviewed with the patient today and has been updated and is correct at the time of today's visit. KIERSTEN Carter-C [address] [place] [address], [phone], [facility] 01/03/2024 12:30:40 OBGyn Episode No OBEpisode recorded.
[2024-12-10 21:43] LABS: Alveolar/Arterial O2 Gradient 11.9 mmHg; Fractional Inspired Oxygen 21 %; HCO3 ABG 8.3 mEq/l (22.0-26.0); Oxygen Content ABG 16.8 %vol (16.0-22.0); Oxygen Saturation ABG 97.2 % (95.0-100.0); PO2 ABG 111.7 mmHg (80.0-100.0); PO2 FiO2 Ratio Arterial Blood 5.32 %
[2024-12-10 21:46] LABS: Liters per Minute 0.0 LPM; PCO2 ABG 21.8 mmHg (35.0-45.0); Site Drawn RIGHT BRACHIAL
[2024-12-10 21:52] LABS: Beta-Hydroxybutyrate/Acetoacetate 2.95 mmol/L (0.02-0.27)
[2024-12-10] MEDS: ONDANSETRON INJ 4 MG/2 ML VIAL IV PUSH (21:53)
--- NOTE | 2024-12-10 22:33 | ED.NAVMDI ---
HPI - Nausea/Vomiting/Diarrhea General Chief complaint: Nausea/Vomiting/Diarrhea Stated complaint: N/V, DM1, HI BG Time Seen by Provider: 12/10/24 21:01 Source: patient, family (Mother) and RN notes reviewed Mode of arrival: EMS Limitations: no limitations History of Present Illness HPI Narrative: Patient with type 1 diabetes mellitus presents with report of high blood sugar and nausea and vomiting since 7:00 a.m.. She is also having myalgias and dizziness. She states she has an Omni pot and uses a calculator to determine carb correction insulin administration but her blood sugars have been ranging between 150 and 250 for the past 3 months. She was in DKA approximately 4 years ago. She has generalized abdominal pain. No fevers or chills but she did feel flushed. She started to have a cough after vomiting. Related Data Allergies Allergy/AdvReac Type Severity Reaction Status Date / Time amoxicillin Allergy Hives Verified 01/07/22 21:37 PMFSH Past Medical History Medical History T1DM (type 1 diabetes mellitus) Social History Social History Substance use: current Substance use type: marijuana Exam Narrative: GENERAL: Well-appearing, well-nourished HEAD: Normocephalic, atraumatic. EYES: Non injected, non icteric ENT: Nares clear, no rhinorrhea or epistaxis. Gross auditory acuity intact. NECK: Supple. No meningismus. CHEST: Speaking in full sentences. No respiratory distress. HEART: Tachycardic rate and rhythm. . ABDOMEN: Soft, nondistended. No rigidity or guarding. Not peritoneal EXTREMITIES: Normal range of motion. No lower extremity edema. SKIN: Warm, dry, no rash. NEURO: No focal deficits. Alert and oriented. Answering questions. Following commands. Normal speech without aphasia or dysarthria. PSYCH: Normal mood and affect. Course Vital Signs Vital signs: Vital Signs Temperature 98.1 F 12/10/24 20:21 Pulse Rate 133 H 12/10/24 20:21 Respiratory Rate 14 12/10/24 20:21 Blood Pressure 123/74 12/10/24 20:21 Pulse Oximetry 100 12/10/24 20:21 Oxygen Delivery Room Air 12/10/24 20:21 Temperature 98.1 F 12/10/24 20:21 Pulse Rate 131 H 12/10/24 21:10 Respiratory Rate 15 12/10/24 21:10 Blood Pressure 118/49 L 12/10/24 21:10 Pulse Oximetry 100 12/10/24 21:10 Oxygen Delivery Room Air 12/10/24 20:21 MDM - Nausea/Vomiting/Diarrhea MDM Narrative Medical decision making narrative: The patient presents with [fatigue, dyspnea, abdominal pain, polyuria, polydipsia, nausea/vomiting, +/- signs of infection). In the emergency department she is afebrile with vital signs notable for tachycardia. 2 L IV fluids ordered given her point of care glucose was 391 mg/dL and this tachycardia as well as the significant lactic acidosis. Zofran also ordered. Urinalysis notable for ketones in urine and glucosuria but no signs of infection. Diagnosis of DKA based on the triad of hyperglycemia, ketosis, and acidosis. ABG as below reiterates she is acidotic. Beta hydroxybutyrate also elevated. test negative. Pseudo hyponatremia as it corrects to 137/140 given hyperglycemia. She has hyperkalemia. EKG and treatment/intervention ordered including calcium gluconate, high-dose albuterol, bicarb. She will receiving insulin as part of DKA treatment. 3rd L IV fluids ordered by [employer] school professional hospitalist who has been reviewing her chart in anticipation of admission. Insulin gtt is initiated at approximately 0.1U/kg/hour. DKA order set. She has a significant leukocytosis. She is still having pain and nausea. Famotidine, Reglan, and morphine ordered. Low threshold to trial diphenhydramine and Haldol if the symptoms persist as patient does use marijuana daily/near daily. Patient discussed with hospitalist as well as technical sales engineer. Patient will go to the ICU as per protocol. Differential Diagnosis Differential diagnosis: Likely drug-induced nausea and vomiting, dehydration and other (DKA, HHS, hyperglycemia, cannabinoid hyperemesis syndrome, gastritis) Lab Data Attestation: I reviewed the patient's lab results. 12/10/24 20:44 12/10/24 20:44 Labs: Lab Results 12/10/24 12/10/24 12/10/24 Range/Units 20:16 20:43 20:44 WBC 22.9 H (4.5-10.0) K/mm3 RBC 4.11 L (4.2-5.4) M/mm3 Hgb 12.1 (12.0-15.0) g/dL Hct 35.7 L (37.0-47.0) % MCV 86.9 (80-100) fl MCH 29.4 (26-34) pg MCHC 33.9 (32-36) g/dl RDW 12.5 (11.5-14.5) % Plt Count 327 (150-375) k/mm3 MPV 9.5 (7.4-10.4) fl Immature Gran % (Auto) Not Reportable Neut % (Auto) Not Reportable Lymph % (Auto) Not Reportable Woodruff % (Auto) Not Reportable Eos % (Auto) Not Reportable Baso % (Auto) Not Reportable Lymph # (Auto) Not Reportable Woodruff # (Auto) Not Reportable Eos # (Auto) Not Reportable Baso # (Auto) Not Reportable Abs Immat Gran (auto) Not Reportable Absolute Neuts (auto) Not Reportable Absolute Nucleated RBC Not Reportable Total Counted 100 Neutrophils % (Manual) 87 H (46-73) % Band Neutrophils % 5 (0-6) % Lymphocytes % (Manual) 2.0 L (18-44) % Monocytes % (Manual) 6 (3-9) % Nucleated RBC % Not Reportable Abs Neuts (Manual) 21.06 H (1.3-6.7) K/mm3 Abs Lymphs (Manual) 0.45 L (1.1-4.5) K/mm3 Abs Monocytes (Manual) 1.37 H (0.1-0.90) K/mm3 Platelet Estimate Adequate (Adequate) Schistocytes None seen Sodium 132 L (137-145) mmol/L Potassium 5.6 H (3.4-5.0) mmol/L Chloride 102 (98-107) mmol/L Carbon Dioxide 9 L (22-30) mmol/L Anion Gap 21 H (4-12) mmol/L BUN 18 H D (7-17) mg/dL Creatinine 0.87 (0.7-1.0) mg/dL Estim Creat Clear Calc 73 ml/min Estimated GFR > 60 (59 - ) Glucose 441 H (65-110) mg/dL POC Capillary Glucose 391 H (65-105) mg/dl Lactic Acid 6.2 H* (0.7-2.0) mmol/L Calcium 8.8 (8.4-10.2) mg/dL Total Bilirubin 0.9 (0.2-1.3) mg/dL AST 31 (14-36) U/L ALT 27 (6-35) U/L Alkaline Phosphatase 93 (38-126) U/L Total Protein 6.7 (6.3-8.2) g/dL Albumin 4.1 (3.5-5.1) g/dL Lipase 14 L (23-300) U/L Beta-Hydroxybutyrate/Acetoacetate 2.95 H (0.02-0.27) mmol/L Urine Color (Yellow) Urine Appearance (Clear) Urine pH (5.0-9.0) Ur Specific [place] (1.001-1.035) Urine Protein (Negative) mg/dL Urine Glucose (UA) (Negative) mg/dL Urine Ketones (Negative) mg/dL Ur Blood (Man) (Negative) Urine Nitrate (Negative) Urine Bilirubin (Negative) Urine Urobilinogen (<2.0) mg/dL Leukocyte Esterase Rfl (Negative) ZARINA/UL POC Urine HCG, Qual (Negative) 12/10/24 12/10/24 Range/Units 20:50 20:53 WBC (4.5-10.0) K/mm3 RBC (4.2-5.4) M/mm3 Hgb (12.0-15.0) g/dL Hct (37.0-47.0) % MCV (80-100) fl MCH (26-34) pg MCHC (32-36) g/dl RDW (11.5-14.5) % Plt Count (150-375) k/mm3 MPV (7.4-10.4) fl Immature Gran % (Auto) Neut % (Auto) Lymph % (Auto) Woodruff % (Auto) Eos % (Auto) Baso % (Auto) Lymph # (Auto) Woodruff # (Auto) Eos # (Auto) Baso # (Auto) Abs Immat Gran (auto) Absolute Neuts (auto) Absolute Nucleated RBC Total Counted Neutrophils % (Manual) (46-73) % Band Neutrophils % (0-6) % Lymphocytes % (Manual) (18-44) % Monocytes % (Manual) (3-9) % Nucleated RBC % Abs Neuts (Manual) (1.3-6.7) K/mm3 Abs Lymphs (Manual) (1.1-4.5) K/mm3 Abs Monocytes (Manual) (0.1-0.90) K/mm3 Platelet Estimate (Adequate) Schistocytes Sodium (137-145) mmol/L Potassium (3.4-5.0) mmol/L Chloride (98-107) mmol/L Carbon Dioxide (22-30) mmol/L Anion Gap (4-12) mmol/L BUN (7-17) mg/dL Creatinine (0.7-1.0) mg/dL Estim Creat Clear Calc ml/min Estimated GFR (59 - ) Glucose (65-110) mg/dL POC Capillary Glucose (65-105) mg/dl Lactic Acid (0.7-2.0) mmol/L Calcium (8.4-10.2) mg/dL Total Bilirubin (0.2-1.3) mg/dL AST (14-36) U/L ALT (6-35) U/L Alkaline Phosphatase (38-126) U/L Total Protein (6.3-8.2) g/dL Albumin (3.5-5.1) g/dL Lipase (23-300) U/L Beta-Hydroxybutyrate/Acetoacetate (0.02-0.27) mmol/L Urine Color Yellow (Yellow) Urine Appearance Clear (Clear) Urine pH 5.0 (5.0-9.0) Ur Specific [place] 1.029 (1.001-1.035) Urine Protein Negative (Negative) mg/dL Urine Glucose (UA) 3+ H (Negative) mg/dL Urine Ketones 4+ H (Negative) mg/dL Ur Blood (Man) Negative (Negative) Urine Nitrate Negative (Negative) Urine Bilirubin Negative (Negative) Urine Urobilinogen 0.2 (<2.0) mg/dL Leukocyte Esterase Rfl Negative (Negative) ZARINA/UL POC Urine HCG, Qual Negative (Negative) ABG Data ABG results: 12/10/24 21:29 Puncture Site Right brachial ABG pH 7.199 L* ABG pCO2 21.8 L* ABG pO2 111.7 H ABG PO2/FiO2 Ratio 5.32 ABG HCO3 8.3 L ABG O2 Saturation 97.2 ABG O2 Content 16.8 ABG Base Excess -17.9 A-a Gradient 11.9 Oxyhemoglobin 97.1 Total Hemoglobin 12.2 O2 Delivery Device Room air O2 Liters/Min 0.0 FiO2 21 Attestation: I personally reviewed and interpreted this ABG as follows: Interpretation: Anion gap metabolic acidosis ECG Data EKG #1: Attestation: I personally reviewed and interpreted this ECG as follows: ECG completion date: 12/10/24 ECG completion time: 22:58 Interpretation: Sinus tachycardia at a rate of 140 beats per minute. There are appreciable P-waves. MA interval 121. QRS 89. QT/QTC 296/378. Good R-wave progression across the precordial leads. T-wave inversion in 3 but upright in contiguous inferior leads. No other T-wave inversions Discharge Plan Discharge Clinical Impression: DKA (diabetic ketoacidosis), Pseudohyponatremia, Glucosuria, Leukocytosis, Hyperkalemia, Acidosis, lactic Patient Disposition: Still a Patient Condition: Serious Patient Language: Upper Sorbian Prescriptions: No Action cephalexin 500 mg capsule 500 mg PO QID 14 Days Qty: 56 0RF ondansetron 4 mg tablet,disintegrating 4 mg PO Q8H Qty: 10 0RF hydrocodone-acetaminophen 5-325 mg tablet 1 tablet PO Q8H PRN (Reason: pain) Qty: 14 0RF Follow-up/Referrals: PHYSICIAN NOT ON STAFF,NONSTAFF [Primary Care Provider] -
--- NOTE | 2024-12-10 22:40 | ECG_ITS ---
Test Date: 2024-12-10 22:58:03 Measurements Intervals [place] Rate: 140 P: -8 TX: 121 QRS: -2 QRSD: 89 T: 3 QT: 296 QTc: 453 Interpretive Statements SINUS TACHYCARDIA POSSIBLE RIGHT VENTRICULAR CONDUCTION DELAY [RSR (QR) IN V1/V2] SEPTAL MYOCARDIAL INFARCTION , OF INDETERMINATE AGE [40+ ms Q WAVE IN V1/V2] No previous ECG available for comparison Electronically Signed On 12-12-2024 15:38:40 CDT by Shai Harris M.D.
[2024-12-10] MEDS: PANTOPRAZOLE SODIUM IV 40 MG VIAL IV PUSH (23:02)
[2024-12-10] MEDS: CALCIUM GLUCONATE 1,000 MG/10 ML VIAL 1000 MG IV PUSH (23:05)
[2024-12-10] MEDS: SODIUM BICARBONATE 8.4% 50 MEQ/50 ML SYRINGE IV PUSH (23:07)
[2024-12-10] MEDS: INSULIN HUMAN REGULAR (*BKC) 100 UNITS in SODIUM CHLORIDE 0.9% IV 99 ML 5.5 UNITS IV CONT (23:13)
[2024-12-10] MEDS: INSULIN HUMAN REGULAR (*BKC) 100 UNITS/ML 8.9 UNITS IV PUSH (23:15)
[2024-12-10] MEDS: SODIUM CHLORIDE 0.9% IV 1,000 ML 150 ML IV CONT (23:17)
[2024-12-10] MEDS: FAMOTIDINE 20 MG/2 ML VIAL IV PUSH (23:24)
[2024-12-10] MEDS: METOCLOPRAMIDE HCL INJ 10 MG/2 ML VIAL 5 MG IV PUSH (23:24)
[2024-12-10] MEDS: MORPHINE SULFATE (*CRX) 2 MG/ML INJ IV PUSH (23:26)
[2024-12-11] VITALS (15 sets, daily range): BP systolic 86–126; BP diastolic 52–94; PULSE 79–115; RESP 12–26; TEMP 36.5–36.9; O2SAT 99–100; BMI 21.4
[2024-12-11 00:29] LABS: Thyroid Stimulating Hormone 0.773 uIU/mL (0.465-4.680)
--- NOTE | 2024-12-11 00:40 | ADMGEN ---
This patient, Naty Braden, was admitted to Intensive Care Unit-2 at 0030. Patient/family oriented to hospital policies and general routines including ID bracelet, bed and alarms, visiting hours, pain management, procedures, bathroom and other care routines, personal items, smoking policy, room service/diet, and visiting hours. Information on how to activate the Rapid Response Team has been discussed. Patient/Family are encouraged to report perceived risks to care and to ask questions if they do not understand what they are told or what they should do.
[2024-12-11 01:16] LABS: Hemoglobin A1C 9.9 % (<5.7)
[2024-12-11 01:22] LABS: Blood Urea Nitrogen 17 mg/dL (7-17); Calcium 8.7 mg/dL (8.4-10.2); Carbon Dioxide < 5 mmol/L (22-30); Chloride 110 mmol/L (98-107); Estimated CRCL calculation 77 ml/min; Estimated Glomerular Filt Rate > 60; Glucose 362 mg/dL (65-110); Magnesium 1.7 mg/dL (1.6-2.3); Potassium 5.1 mmol/L (3.4-5.0); Sodium 135 mmol/L (137-145)
[2024-12-11 01:29] LABS: MRSA (PCR) NOT DETECTED (NOT DETECTE)
--- NOTE | 2024-12-11 02:56 | PM.IMHP ---
H&P: HPI History of Present Illness Date/Time: 12/11/24 02:56 Chief Complaint: Nausea vomiting since 07:00 on the Narrative: 24-year-old female with a past medical history of type 1 diabetes since the age of [age] years old who presented to the ER with nausea vomiting is started on 07:00 on the . The patient reports that her A1c tends to run around 9. Her mother was at bedside states that she is frustrated with the patient because she has not been managing her diabetes well since her senior year of high school. The patient is now and [employer] and is a senior studying psychology. Her mother reports that since she moved to the area for school the patient has not has good of glycemic control. The patient did states that she tried to switch from her Dexcom sensor to a different type of sensor about 6 months ago. She did not likely new sensor and since that time she has had difficulty contacting her wreath and garland maker in [place] to get switch back to a Dexcom. She has subsequently been manually injuring her correction factors and carbs into her pump. She reports that she has also been having a lot of hypoglycemia in the ?morning?. She reports that she often stays up late until 02:00 ending sleeps until 14:00 since she can do most of her classes online and keep to her own schedule. If she reports that she has been frequently getting hypoglycemic down into the 50s. She is otherwise her running in the 180s to 250 range the rest of the day. She has been having some increased polydipsia and polyuria. She denies any dysuria or hematuria. She has not had any fevers, chills, cough, congestion. She denies any abdominal pain except for from where she was vomiting. She denies any wounds and does not have a history of neuropathy. She has not scheduled her yearly eye exam yet this year she states that she is due for this month. She denies any headaches fevers or chills. Review of Systems Review of Systems: 12 systems were reviewed with pertinent positives and negatives per HPI. Except as documented in the HPI, all other systems were reviewed and are negative. [facility] Past Medical History Medical History (Updated 12/11/24 @ 11:02 by Valeria Montano, DO) Anxiety and depression T1DM (type 1 diabetes mellitus) Surgical History Surgical History (Updated 12/11/24 @ 10:55 by Valeria Montano DO) No history of previous surgery Family History Family History Grandparent Myocardial infarct Father Heart disease Social History Social History (Updated 12/11/24 @ 10:57 by Valeria Montano DO) Social History: The patient is a senior in college studying psychology. She is single and does not have any children. She has vape since she was 16 years old and reports that she vapes all day. She drinks 1 alcoholic beverage a week. She smokes marijuana and has done so since 16 years old. Code status: Full code Surrogate decision maker: Mother Smoking status: Current some day smoker Tobacco type: e-cigarettes/vaping Alcohol intake: current Drinks per week: 1 Substance use: current Substance use type: marijuana Last use: 12/10/2024 Do You Feel Safe in your Home?: Yes Lack of Transportation: No Lack of Food: Never True Current Housing: I Have Housing Concerned About Future Housing: No Difficulty Paying Gas/Electric Bills: No Difficulty Paying for Meds: No Currently Unemployed: No Education: High School Diploma/GED Difficulty w/ Childcare or Family Care: No Spiritual care concerns: No Meds Home Medications and Allergies Home Medications ?Medication ?Instructions ?Recorded ?Confirmed ?Type ondansetron 4 mg disintegrating 4 mg PO Q8H #10 tabs 01/08/22 12/11/24 Rx tablet escitalopram oxalate 10 mg tablet 10 mg PO DAILY 12/11/24 12/11/24 History insulin lispro 100 unit/mL See Rx Instructions .Route .COMPLEX 12/11/24 12/11/24 History subcutaneous solution insulin pump cart,auto,BT,G6/7 12/11/24 12/11/24 History (Omnipod 5 G6-G7 Pods (Gen 5) subcutaneous cartridge) trazodone 50 mg tablet 25 mg PO HS PRN insomnia 12/11/24 12/11/24 History Allergies Allergy/AdvReac Type Severity Reaction Status Date / Time amoxicillin Allergy Hives Verified 12/11/24 00:55 Vital Signs Vital Signs - 24 hr 12/10/24 20:21 12/10/24 20:58 12/10/24 21:10 Temperature 98.1 F Pulse Rate 133 H 131 H 131 H Respiratory Rate 14 16 15 Blood Pressure 123/74 115/58 L 118/49 L Pulse Oximetry 100 100 100 Oxygen Delivery Room Air 12/10/24 22:45 12/10/24 23:00 12/10/24 23:15 Temperature Pulse Rate 125 H 132 H 128 H Respiratory Rate 16 16 15 Blood Pressure 116/57 L 100/79 120/59 L Pulse Oximetry 100 100 100 Oxygen Delivery 12/10/24 23:30 12/10/24 23:45 12/11/24 01:20 Temperature Pulse Rate 126 H 122 H Respiratory Rate 16 16 Blood Pressure 114/49 L 117/51 L Pulse Oximetry 100 100 Oxygen Delivery Room Air 12/11/24 02:00 12/11/24 02:00 Temperature Pulse Rate 115 H 115 H Respiratory Rate 18 Blood Pressure 107/94 H Pulse Oximetry 100 Oxygen Delivery Exam Narrative: Weight 53.9 kg BMI 21 Const: Other: Mildly ill-appearing, well-developed well-nourished, appears stated age HENMT: Other: Mucous membranes are tacky, posterior oral pharyngeal erythema, head is normocephalic atraumatic Eyes: Other: Pupils are equal and reactive, no scleral icterus, no conjunctival pallor Neck: Other: No JVD, no lymphadenopathy Resp: Other: Clear to auscultation bilaterally, no increased work of breathing Cardio: Other: Sinus tachycardia, 2+ bilateral radial pedal pulses GI: Other: Soft, nontender, nondistended, positive bowel sounds, no organomegaly Skin: Other: No jaundice, no pallor, no rashes Neuro: Other: Alert oriented, speech is clear, no facial asymmetry, no localizing neurologic deficits noted during course of conversation Extrem: Other: No clubbing, cyanosis or edema Psych: Other: Appropriate mood and affect, pleasant and cooperative, judgment and insight fair H&P: Results Labs Labs: Short CBC 12/10/24 Range/Units 20:44 WBC 22.9 H (4.5-10.0) K/mm3 Hgb 12.1 (12.0-15.0) g/dL Hct 35.7 L (37.0-47.0) % Plt Count 327 (150-375) k/mm3 [facility] 12/10/24 12/11/24 20:44 00:56 Sodium 132 L 135 L Potassium 5.6 H 5.1 H Chloride 102 110 H Carbon Dioxide 9 L < 5 L BUN 18 H D 17 Creatinine 0.87 0.83 Glucose 441 H 362 H Calcium 8.8 8.7 Liver Function 12/10/24 Range/Units 20:44 Total Bilirubin 0.9 (0.2-1.3) mg/dL AST 31 (14-36) U/L ALT 27 (6-35) U/L Alkaline Phosphatase 93 (38-126) U/L Albumin 4.1 (3.5-5.1) g/dL Urine 12/10/24 Range/Units 20:50 Urine Color Yellow (Yellow) Urine Appearance Clear (Clear) Urine pH 5.0 (5.0-9.0) Ur Specific [place] 1.029 (1.001-1.035) Urine Protein Negative (Negative) mg/dL Urine Glucose (UA) 3+ H (Negative) mg/dL Laboratory Tests 12/11/24 05:01 12/11/24 09:10 12/10/24 12/10/24 12/10/24 20:16 20:43 20:44 WBC 22.9 H RBC 4.11 L Hgb 12.1 Hct 35.7 L MCV 86.9 MCH 29.4 MCHC 33.9 RDW 12.5 Plt Count 327 MPV 9.5 Immature Gran % (Auto) Not Reportable Neut % (Auto) Not Reportable Lymph % (Auto) Not Reportable [place] % (Auto) Not Reportable Eos % (Auto) Not Reportable Baso % (Auto) Not Reportable Lymph # (Auto) Not Reportable [place] # (Auto) Not Reportable Eos # (Auto) Not Reportable Baso # (Auto) Not Reportable Abs Immat Gran (auto) Not Reportable Absolute Neuts (auto) Not Reportable Absolute Nucleated RBC Not Reportable Total Counted 100 Neutrophils % (Manual) 87 H Band Neutrophils % 5 Lymphocytes % (Manual) 2.0 L Monocytes % (Manual) 6 Nucleated RBC % Not Reportable Abs Neuts (Manual) 21.06 H Abs Lymphs (Manual) 0.45 L Abs Monocytes (Manual) 1.37 H Platelet Estimate Adequate Schistocytes None seen Puncture Site ABG pH ABG pCO2 ABG pO2 ABG PO2/FiO2 Ratio ABG HCO3 ABG O2 Saturation ABG O2 Content ABG Base Excess A-a Gradient Oxyhemoglobin Total Hemoglobin O2 Delivery Device O2 Liters/Min FiO2 Sodium 132 L Potassium 5.6 H Chloride 102 Carbon Dioxide 9 L Anion Gap 21 H BUN 18 H D Creatinine 0.87 Estim Creat Clear Calc 73 Estimated GFR > 60 Glucose 441 H POC Capillary Glucose 391 H Hemoglobin A1c Lactic Acid 6.2 H* Calcium 8.8 Phosphorus Magnesium Total Bilirubin 0.9 AST 31 ALT 27 Alkaline Phosphatase 93 Total Protein 6.7 Albumin 4.1 Lipase 14 L Beta-Hydroxybutyrate/Acetoacetate 2.95 H TSH Urine Color Urine Appearance Urine pH Ur Specific [place] Urine Protein Urine Glucose (UA) Urine Ketones Ur Blood (Man) Urine Nitrate Urine Bilirubin Urine Urobilinogen Leukocyte Esterase Rfl POC Urine HCG, Qual Nasal MRSA (PCR) 12/10/24 12/10/24 12/10/24 20:50 20:53 21:29 WBC RBC Hgb Hct MCV MCH MCHC RDW Plt Count MPV Immature Gran % (Auto) Neut % (Auto) Lymph % (Auto) [place] % (Auto) Eos % (Auto) Baso % (Auto) Lymph # (Auto) [place] # (Auto) Eos # (Auto) Baso # (Auto) Abs Immat Gran (auto) Absolute Neuts (auto) Absolute Nucleated RBC Total Counted Neutrophils % (Manual) Band Neutrophils % Lymphocytes % (Manual) Monocytes % (Manual) Nucleated RBC % Abs Neuts (Manual) Abs Lymphs (Manual) Abs Monocytes (Manual) Platelet Estimate Schistocytes Puncture Site Right brachial ABG pH 7.199 L* ABG pCO2 21.8 L* ABG pO2 111.7 H ABG PO2/FiO2 Ratio 5.32 ABG HCO3 8.3 L ABG O2 Saturation 97.2 ABG O2 Content 16.8 ABG Base Excess -17.9 A-a Gradient 11.9 Oxyhemoglobin 97.1 Total Hemoglobin 12.2 O2 Delivery Device Room air O2 Liters/Min 0.0 FiO2 21 Sodium Potassium Chloride Carbon Dioxide Anion Gap BUN Creatinine Estim Creat Clear Calc Estimated GFR Glucose POC Capillary Glucose Hemoglobin A1c Lactic Acid Calcium Phosphorus Magnesium Total Bilirubin AST ALT Alkaline Phosphatase Total Protein Albumin Lipase Beta-Hydroxybutyrate/Acetoacetate TSH Urine Color Yellow Urine Appearance Clear Urine pH 5.0 Ur Specific [place] 1.029 Urine Protein Negative Urine Glucose (UA) 3+ H Urine Ketones 4+ H Ur Blood (Man) Negative Urine Nitrate Negative Urine Bilirubin Negative Urine Urobilinogen 0.2 Leukocyte Esterase Rfl Negative POC Urine HCG, Qual Negative Nasal MRSA (PCR) 12/10/24 12/11/24 12/11/24 23: 00:09 00:41 WBC RBC Hgb Hct MCV MCH MCHC RDW Plt Count MPV Immature Gran % (Auto) Neut % (Auto) Lymph % (Auto) [place] % (Auto) Eos % (Auto) Baso % (Auto) Lymph # (Auto) [place] # (Auto) Eos # (Auto) Baso # (Auto) Abs Immat Gran (auto) Absolute Neuts (auto) Absolute Nucleated RBC Total Counted Neutrophils % (Manual) Band Neutrophils % Lymphocytes % (Manual) Monocytes % (Manual) Nucleated RBC % Abs Neuts (Manual) Abs Lymphs (Manual) Abs Monocytes (Manual) Platelet Estimate Schistocytes Puncture Site ABG pH ABG pCO2 ABG pO2 ABG PO2/FiO2 Ratio ABG HCO3 ABG O2 Saturation ABG O2 Content ABG Base Excess A-a Gradient Oxyhemoglobin Total Hemoglobin O2 Delivery Device O2 Liters/Min FiO2 Sodium Potassium Chloride Carbon Dioxide Anion Gap BUN Creatinine Estim Creat Clear Calc Estimated GFR Glucose POC Capillary Glucose 343 H 385 H Hemoglobin A1c Lactic Acid 5.8 H* Calcium Phosphorus Magnesium Total Bilirubin AST ALT Alkaline Phosphatase Total Protein Albumin Lipase Beta-Hydroxybutyrate/Acetoacetate TSH 0.773 Urine Color Urine Appearance Urine pH Ur Specific [place] Urine Protein Urine Glucose (UA) Urine Ketones Ur Blood (Man) Urine Nitrate Urine Bilirubin Urine Urobilinogen Leukocyte Esterase Rfl POC Urine HCG, Qual Nasal MRSA (PCR) Not detected 12/11/24 12/11/24 12/11/24 00:56 01:08 02:01 WBC RBC Hgb Hct MCV MCH MCHC RDW Plt Count MPV Immature Gran % (Auto) Neut % (Auto) Lymph % (Auto) [place] % (Auto) Eos % (Auto) Baso % (Auto) Lymph # (Auto) [place] # (Auto) Eos # (Auto) Baso # (Auto) Abs Immat Gran (auto) Absolute Neuts (auto) Absolute Nucleated RBC Total Counted Neutrophils % (Manual) Band Neutrophils % Lymphocytes % (Manual) Monocytes % (Manual) Nucleated RBC % Abs Neuts (Manual) Abs Lymphs (Manual) Abs Monocytes (Manual) Platelet Estimate Schistocytes Puncture Site ABG pH ABG pCO2 ABG pO2 ABG PO2/FiO2 Ratio ABG HCO3 ABG O2 Saturation ABG O2 Content ABG Base Excess A-a Gradient Oxyhemoglobin Total Hemoglobin O2 Delivery Device O2 Liters/Min FiO2 Sodium 135 L Potassium 5.1 H Chloride 110 H Carbon Dioxide < 5 L Anion Gap BUN 17 Creatinine 0.83 Estim Creat Clear Calc 77 Estimated GFR > 60 Glucose 362 H POC Capillary Glucose 355 H 267 H Hemoglobin A1c 9.9 H Lactic Acid Calcium 8.7 Phosphorus 4.3 Magnesium 1.7 Total Bilirubin AST ALT Alkaline Phosphatase Total Protein Albumin Lipase Beta-Hydroxybutyrate/Acetoacetate TSH Urine Color Urine Appearance Urine pH Ur Specific [place] Urine Protein Urine Glucose (UA) Urine Ketones Ur Blood (Man) Urine Nitrate Urine Bilirubin Urine Urobilinogen Leukocyte Esterase Rfl POC Urine HCG, Qual Nasal MRSA (PCR) 12/11/24 12/11/24 12/11/24 02:58 04:00 05:01 WBC 23.0 H RBC 3.91 L Hgb 11.5 L Hct 34.3 L MCV 87.7 MCH 29.4 MCHC 33.5 RDW 12.5 Plt Count 255 MPV 9.5 Immature Gran % (Auto) 0.6 H Neut % (Auto) 81.7 H Lymph % (Auto) 7.0 L [place] % (Auto) 10.4 H Eos % (Auto) 0.0 Baso % (Auto) 0.3 Lymph # (Auto) 1.60 [place] # (Auto) 2.4 H Eos # (Auto) 0.0 Baso # (Auto) 0.1 Abs Immat Gran (auto) 0.14 H Absolute Neuts (auto) 18.8 H Absolute Nucleated RBC 0.000 Total Counted Neutrophils % (Manual) Band Neutrophils % Lymphocytes % (Manual) Monocytes % (Manual) Nucleated RBC % 0.0 Abs Neuts (Manual) Abs Lymphs (Manual) Abs Monocytes (Manual) Platelet Estimate Schistocytes Puncture Site ABG pH ABG pCO2 ABG pO2 ABG PO2/FiO2 Ratio ABG HCO3 ABG O2 Saturation ABG O2 Content ABG Base Excess A-a Gradient Oxyhemoglobin Total Hemoglobin O2 Delivery Device O2 Liters/Min FiO2 Sodium 139 Potassium 4.3 Chloride 114 H Carbon Dioxide 13 L Anion Gap 12 BUN 14 Creatinine 0.80 Estim Creat Clear Calc 79 Estimated GFR > 60 Glucose 131 H POC Capillary Glucose 276 H 180 H Hemoglobin A1c Lactic Acid Calcium 8.5 Phosphorus Magnesium Total Bilirubin AST ALT Alkaline Phosphatase Total Protein Albumin Lipase Beta-Hydroxybutyrate/Acetoacetate TSH Urine Color Urine Appearance Urine pH Ur Specific [place] Urine Protein Urine Glucose (UA) Urine Ketones Ur Blood (Man) Urine Nitrate Urine Bilirubin Urine Urobilinogen Leukocyte Esterase Rfl POC Urine HCG, Qual Nasal MRSA (PCR) 12/11/24 12/11/24 12/11/24 06:04 07:00 07:59 WBC RBC Hgb Hct MCV MCH MCHC RDW Plt Count MPV Immature Gran % (Auto) Neut % (Auto) Lymph % (Auto) [place] % (Auto) Eos % (Auto) Baso % (Auto) Lymph # (Auto) [place] # (Auto) Eos # (Auto) Baso # (Auto) Abs Immat Gran (auto) Absolute Neuts (auto) Absolute Nucleated RBC Total Counted Neutrophils % (Manual) Band Neutrophils % Lymphocytes % (Manual) Monocytes % (Manual) Nucleated RBC % Abs Neuts (Manual) Abs Lymphs (Manual) Abs Monocytes (Manual) Platelet Estimate Schistocytes Puncture Site ABG pH ABG pCO2 ABG pO2 ABG PO2/FiO2 Ratio ABG HCO3 ABG O2 Saturation ABG O2 Content ABG Base Excess A-a Gradient Oxyhemoglobin Total Hemoglobin O2 Delivery Device O2 Liters/Min FiO2 Sodium Potassium Chloride Carbon Dioxide Anion Gap BUN Creatinine Estim Creat Clear Calc Estimated GFR Glucose POC Capillary Glucose 133 H 120 H 131 H Hemoglobin A1c Lactic Acid Calcium Phosphorus Magnesium Total Bilirubin AST ALT Alkaline Phosphatase Total Protein Albumin Lipase Beta-Hydroxybutyrate/Acetoacetate TSH Urine Color Urine Appearance Urine pH Ur Specific [place] Urine Protein Urine Glucose (UA) Urine Ketones Ur Blood (Man) Urine Nitrate Urine Bilirubin Urine Urobilinogen Leukocyte Esterase Rfl POC Urine HCG, Qual Nasal MRSA (PCR) 12/11/24 12/11/24 12/11/24 08:51 09:10 09:58 WBC RBC Hgb Hct MCV MCH MCHC RDW Plt Count MPV Immature Gran % (Auto) Neut % (Auto) Lymph % (Auto) [place] % (Auto) Eos % (Auto) Baso % (Auto) Lymph # (Auto) [place] # (Auto) Eos # (Auto) Baso # (Auto) Abs Immat Gran (auto) Absolute Neuts (auto) Absolute Nucleated RBC Total Counted Neutrophils % (Manual) Band Neutrophils % Lymphocytes % (Manual) Monocytes % (Manual) Nucleated RBC % Abs Neuts (Manual) Abs Lymphs (Manual) Abs Monocytes (Manual) Platelet Estimate Schistocytes Puncture Site ABG pH ABG pCO2 ABG pO2 ABG PO2/FiO2 Ratio ABG HCO3 ABG O2 Saturation ABG O2 Content ABG Base Excess A-a Gradient Oxyhemoglobin Total Hemoglobin O2 Delivery Device O2 Liters/Min FiO2 Sodium 132 L Potassium 4.4 Chloride 112 H Carbon Dioxide 13 L Anion Gap 7 BUN 12 Creatinine 0.77 Estim Creat Clear Calc 82 Estimated GFR > 60 Glucose 249 H POC Capillary Glucose 251 H 301 H Hemoglobin A1c Lactic Acid 0.7 Calcium 7.9 L Phosphorus Magnesium Total Bilirubin AST ALT Alkaline Phosphatase Total Protein Albumin Lipase Beta-Hydroxybutyrate/Acetoacetate TSH Urine Color Urine Appearance Urine pH Ur Specific [place] Urine Protein Urine Glucose (UA) Urine Ketones Ur Blood (Man) Urine Nitrate Urine Bilirubin Urine Urobilinogen Leukocyte Esterase Rfl POC Urine HCG, Qual Nasal MRSA (PCR) Assessment and Plan Assessment and plan (1) DKA, type 1, not at goal: Code(s): E10.10 - Type 1 diabetes mellitus with ketoacidosis without coma Status: Acute (2) Acidosis, lactic: Code(s): E87.20 - Acidosis, unspecified Status: Acute (3) Hyperkalemia: Code(s): E87.5 - Hyperkalemia Status: Acute (4) Leukocytosis: Qualifiers: Leukocytosis type: leukemoid reaction Qualified Code(s): D72.823 - Leukemoid reaction Code(s): D72.829 - Elevated white blood cell count, unspecified Status: Acute (5) Pseudohyponatremia: Code(s): R79.89 - Other specified abnormal findings of blood chemistry Status: Acute Plan Patient has DKA due to poorly-controlled type 1 diabetes mellitus. Patient does have leukocytosis but no overt signs of infection. Presumed causes DKA is in adequate insulin intake. Patient has been admitted to the ICU on DKA protocol with serial electrolyte panels. IV fluid administration. Patient received 2 L of IV fluids in the ER. I requested an additional L be given in the ER. The patient subsequently had repeat lactic acid level was still quite elevated and on arrival to the ICU I gave an additional 4 L. Due to pull or IV axis I did have to slow the rate of the last bolus. The patient has also been started on IV fluids per DKA protocol with dextrose and potassium titration per protocol. The patient did have initial hyperkalemia hyperkalemia was due to acidosis and not due to decreased renal excretion. However patient did receive calcium gluconate, and bicarb Will treat underlying DKA and monitor. Patient's heart rate has improved with IV fluid hydration. Will monitor for closure of anion gap in normalization of serum bicarb. Will allow the patient to have sugar free clear liquids as she is no longer having significant nausea or vomiting. Patient's settings on her insulin pump were reviewed currently she is getting 0.9 units between midnight and 04:00 0.95 units between 04:00 and 07:00 0.75 units between 07:00 and 12:00 and 1.05 units until midnight. She is having difficulty with episodes of AM hypoglycemia. Subsequently have made changes to the patient's insulin regimen for after her gap and bicarb of normalized. Her basal rate will be switched to 0.9 use 00:00 to 04:00 0.75 units for a.m. until 14:00 and 1.2 units 14:00 to 00:00. The patient's usual insulin to carb ratio is 1 unit for rate 12 g of carbs. A well decrease her insulin could to carb ratio to 1 unit for every 10 g of carbs. The importance of frequently checking her sugars and entering appropriate carb counts was discussed in detail. The patient is aware of these factors but soundly he has had difficulty with compliance over the last 4-5 years according to her mother's report. Patient had initial leukocytosis that was mild repeat CBC was ordered for this a.m. and white count has continued elevate. The patient still does not have any evidence of acute infection. Her symptoms have improved significantly tachycardia has resolved and she remains afebrile. Leukocytosis is likely due to leukopenia weight reaction. Will hold off on any antibiotic administration at this time. However will check chest x-ray. PPI prophylaxis with Protonix. 50 minute spent in critical care activities. Due to a high probability of clinically significant, life threatening deterioration, the patient required my highest level of preparedness to intervene emergently and I personally spent this critical care time directly and personally managing the patient. This critical care time included obtaining a history; examining the patient; pulse oximetry; ordering and review of studies; arranging urgent treatment with development of a management plan; evaluation of patient's response to treatment; frequent reassessment; and discussions with other providers. It was exclusive of separately billable procedures and treating other patients and teaching time. Please see Assessment and Plan section and the rest of the note for further information on patient assessment and treatment. Quality VTE Prophylaxis VTE prophylaxis: pharmacologic ordered (Lovenox 40 mg subQ daily.) Hospitalist MIPS Advance Care Plan I have confirmed that the patient's Advanced Care Plan is present, code status is documented, or surrogate decision maker is listed in patient medical record.: Yes Medication Reconciliation I have utilized all available resources to obtain, update and review the patients current medications (includes all prescriptions, OTC, herbals, cannabis, and nutritional supplements).: Yes
[2024-12-11] MEDS: SODIUM CHLORIDE 0.9% IV 2,000 ML 250 ML IV CONT (03:10)
[2024-12-11 05:17] LABS: Hematocrit 34.3 % (37.0-47.0); Hemoglobin 11.5 g/dL (12.0-15.0); Immature Granulocyte Percent A 0.6 % (0-0.5); Lymphocytes Absolute Auto 1.60 K/mm3 (0.9-3.2); Mean Corpuscular HGB Conc 33.5 g/dl (32-36); Mean Corpuscular Hemoglobin 29.4 pg (26-34); Mean Corpuscular Volume 87.7 fl (80-100); Nucleated Red Blood Cells Absolute Auto 0.000 K/mm3 (0.0-0.012); Nucleated Red Blood Cells Perc 0.0 % (0.0-0.2); Platelet Count Result 255 k/mm3 (150-375); Red Blood Count 3.91 M/mm3 (4.2-5.4); White Blood Count 23.0 K/mm3 (4.5-10.0)
[2024-12-11] MEDS: KCL 20 MEQ/D5/0.45% SOD CHL 1,000 ML 100 ML IV CONT (05:29)
[2024-12-11 05:36] LABS: Anion Gap 12 mmol/L (4-12); Blood Urea Nitrogen 14 mg/dL (7-17); Calcium 8.5 mg/dL (8.4-10.2); Carbon Dioxide 13 mmol/L (22-30); Chloride 114 mmol/L (98-107); Estimated CRCL calculation 79 ml/min; Estimated Glomerular Filt Rate > 60; Glucose 131 mg/dL (65-110); Potassium 4.3 mmol/L (3.4-5.0); Sodium 139 mmol/L (137-145)
[2024-12-11] MEDS: PANTOPRAZOLE SODIUM IV 40 MG VIAL IV PUSH (08:58)
[2024-12-11] MEDS: ENOXAPARIN 40 MG/0.4 ML SYRINGE SUB-Q (08:58)
[2024-12-11] MEDS: ESCITALOPRAM OXALATE 10 MG TABLET PO (08:59)
--- NOTE | 2024-12-11 09:12 | P.CONIN_ITS ---
Assessment and Plan Assessment and plan (1) DKA (diabetic ketoacidosis): Code(s): E11.10 - Type 2 diabetes mellitus with ketoacidosis without coma Status: Acute Assessment and Plan: 12/10: Patient presented with hyperglycemia, nausea, vomiting, abdominal pain, myalgia and dizziness. In the ER patient had anion gap metabolic acidosis likely related to diabetic ketoacidosis with elevated beta hydroxybutyrate, UA positive for ketones and glucose -patient was given total of 4 L IV fluid bolus -remains on insulin infusion per DKA protocol -BMPs per DKA protocol -will transition to long-acting insulin and sliding scale insulin once anion gap closes as well as CO2 improves -telehealth nurse educator and dietitian consult are in the chart -Hemoglobin A1c 9.9 this admission (2) Hyperkalemia: Code(s): E87.5 - Hyperkalemia Status: Acute Assessment and Plan: Resolved likely related to metabolic acidosis Plan DVT prophylaxis: Lovenox Stress ulcer prophylaxis: Not indicated Nutrition: NPO except ice Code Status: Full Critical Care Time Spent: 48 minutes Discussed with patient and her mother at bedside and updated them with patient's condition and plan of care. I answered all questions Due to a high probability of clinically significant, life threatening deterioration, the patient required my highest level of preparedness to intervene emergently and I personally spent this critical care time directly and personally managing the patient. This critical care time included obtaining a history; examining the patient; pulse oximetry; ordering and review of studies; arranging urgent treatment with development of a management plan; evaluation of patient's response to treatment; frequent reassessment; and discussions with other providers. It was exclusive of separately billable procedures and treating other patients and teaching time. Please see Assessment and Plan section and the rest of the note for further information on patient assessment and treatment This dictation may have been done utilizing a voice recognition system. Attempts have been made to correct errors. However, there may be uncorrected grammatical, spelling, and recognitions errors present. Enforcement Safety Officer Consult Note Consult date: 12/11/24 Reason for consult: Diabetic ketoacidosis, hyperglycemia, abdominal pain, nausea, vomiting, myalgias, dizziness HPI: Naty Braden is a 24 year old female past medical history of DKA 4 years ago, type 1 diabetes, patient has a DEXACOM, and Omnipod at home. For some reason her DEXA, was not could covered by insurance when she moved here. Show patient has been checking her blood sugars with glucometer and calculating, correction with insulin administration. Patient has been ranging between 150-250 blood sugar for the past 3 months. Presented to the ED on 12/10/2024 with complains of nausea, vomiting, abdominal pain, myalgias and dizziness. Patient also complained of polyuria, polydipsia. In the ER patient was tachycardic with heart rates in the 130s. Initially 2 L of IV fluid bolus was given after which patient was started on insulin infusion per a DKA protocol and transferred to the ICU for further management. Upon evaluation by the hospitalist patient was given additional 2 L IV fluid bolus with improvement in her heart rate. Pertinent labs in the ER were WBC of 22.9, potassium of 5.6, CO2 9, BUN 18, creatinine 0.8, blood sugar 441., anion gap of 21, beta hydroxybutyrate 2.95. UA was positive for glucose, ketones. Patient seen and examined this morning in the ICU, pleasant female currently in no acute distress, denies any shortness of breath, chest pain, abdominal pain, nausea, vomiting at this time. Complains of some sore throat. Hemodynamically stable,, afebrile, adequate urine output Review of Systems 2 Review of Systems: All systems reviewed & are unremarkable except as noted in HPI and below PMFSH Past Medical History Medical History T1DM (type 1 diabetes mellitus) Family History Family History (Updated 12/11/24 @ 00:44 by Ani Medina RN) Grandparent Myocardial infarct Father Heart disease Social History Social History Smoking status: Never smoker Alcohol intake: current Drinks per week: 1 Substance use: current Substance use type: marijuana Last use: 12/10/2024 Do You Feel Safe in your Home?: Yes Lack of Transportation: No Lack of Food: Never True Current Housing: I Have Housing Concerned About Future Housing: No Difficulty Paying Gas/Electric Bills: No Difficulty Paying for Meds: No Currently Unemployed: No Education: High School Diploma/GED Difficulty w/ Childcare or Family Care: No Spiritual care concerns: No Meds Home Medications and Allergies Home Medications ?Medication ?Instructions ?Recorded ?Confirmed ?Type ondansetron 4 mg disintegrating 4 mg PO Q8H #10 tabs 01/08/22 12/11/24 Rx tablet escitalopram oxalate 10 mg tablet 10 mg PO DAILY 12/11/24 12/11/24 History insulin lispro 100 unit/mL See Rx Instructions .Route .COMPLEX 12/11/24 12/11/24 History subcutaneous solution insulin pump cart,auto,BT,G6/7 12/11/24 12/11/24 History (Omnipod 5 G6-G7 Pods (Gen 5) subcutaneous cartridge) trazodone 50 mg tablet 25 mg PO HS PRN insomnia 12/11/24 12/11/24 History Allergies Allergy/AdvReac Type Severity Reaction Status Date / Time amoxicillin Allergy Hives Verified 12/11/24 00:55 Vital Signs Vital Signs - 24 hr 12/10/24 20:21 12/10/24 20:58 12/10/24 21:10 Temperature 98.1 F Pulse Rate 133 H 131 H 131 H Respiratory Rate 14 16 15 Blood Pressure 123/74 115/58 L 118/49 L Pulse Oximetry 100 100 100 Oxygen Delivery Room Air 12/10/24 22:45 12/10/24 23:00 12/10/24 23:15 Temperature Pulse Rate 125 H 132 H 128 H Respiratory Rate 16 16 15 Blood Pressure 116/57 L 100/79 120/59 L Pulse Oximetry 100 100 100 Oxygen Delivery 12/10/24 23:30 12/10/24 23:45 12/11/24 01:20 Temperature Pulse Rate 126 H 122 H Respiratory Rate 16 16 Blood Pressure 114/49 L 117/51 L Pulse Oximetry 100 100 Oxygen Delivery Room Air 12/11/24 02:00 12/11/24 02:00 12/11/24 04:00 Temperature Pulse Rate 115 H 115 H Respiratory Rate 18 Blood Pressure 107/94 H Pulse Oximetry 100 Oxygen Delivery Room Air 12/11/24 04:00 12/11/24 04:00 12/11/24 06:00 Temperature 98.4 F Pulse Rate 104 H 105 H 106 H Respiratory Rate 16 Blood Pressure 94/71 L Pulse Oximetry 100 Oxygen Delivery 12/11/24 06:00 12/11/24 07:38 12/11/24 08:00 Temperature 97.8 F Pulse Rate 106 H 94 94 Respiratory Rate 21 H 18 18 Blood Pressure 100/56 L 111/62 Pulse Oximetry 100 100 100 Oxygen Delivery Room Air 12/11/24 08:00 Temperature Pulse Rate 94 Respiratory Rate Blood Pressure Pulse Oximetry Oxygen Delivery Exam 2 Narrative: General: Pleasant female in no acute distress HEENT:? Pupils equal reactive, sclera is clear, posterior pharyngeal wall without any edema, exudate or swelling. Uvula is midline Neck:? Supple Respiratory:? Clear to auscultation bilaterally, no wheezing, adequate air entry Cardiac:? S1-S2 normal, regular rate and rhythm Abdomen:? Soft, nontender, nondistended, normoactive bowel sounds Extremities:? No edema, palpable pedal pulses Neuro:? Awake, alert, oriented, nonfocal Skin:? No skin lesions noted Psych:? Normal mentation and affect Results Labs 12/11/24 05:01 12/11/24 05:01 Labs: Short CBC 12/10/24 12/11/24 Range/Units 20:44 05:01 WBC 22.9 H 23.0 H (4.5-10.0) K/mm3 Hgb 12.1 11.5 L (12.0-15.0) g/dL Hct 35.7 L 34.3 L (37.0-47.0) % Plt Count 327 255 (150-375) k/mm3 BMP 12/10/24 12/11/24 12/11/24 20:44 00:56 05:01 Sodium 132 L 135 L 139 Potassium 5.6 H 5.1 H 4.3 Chloride 102 110 H 114 H Carbon Dioxide 9 L < 5 L 13 L BUN 18 H D 17 14 Creatinine 0.87 0.83 0.80 Glucose 441 H 362 H 131 H Calcium 8.8 8.7 8.5 Liver Function 12/10/24 Range/Units 20:44 Total Bilirubin 0.9 (0.2-1.3) mg/dL AST 31 (14-36) U/L ALT 27 (6-35) U/L Alkaline Phosphatase 93 (38-126) U/L Albumin 4.1 (3.5-5.1) g/dL Urine 12/10/24 Range/Units 20:50 Urine Color Yellow (Yellow) Urine Appearance Clear (Clear) Urine pH 5.0 (5.0-9.0) Ur Specific [place] 1.029 (1.001-1.035) Urine Protein Negative (Negative) mg/dL Urine Glucose (UA) 3+ H (Negative) mg/dL Quality VTE Prophylaxis VTE prophylaxis: pharmacologic ordered Hospitalist MIPS Advance Care Plan I have confirmed that the patient's Advanced Care Plan is present, code status is documented, or surrogate decision maker is listed in patient medical record.: Yes Medication Reconciliation I have utilized all available resources to obtain, update and review the patients current medications (includes all prescriptions, OTC, herbals, cannabis, and nutritional supplements).: Yes
[2024-12-11 09:42] LABS: Anion Gap 7 mmol/L (4-12); Blood Urea Nitrogen 12 mg/dL (7-17); Calcium 7.9 mg/dL (8.4-10.2); Carbon Dioxide 13 mmol/L (22-30); Chloride 112 mmol/L (98-107); Estimated CRCL calculation 82 ml/min; Estimated Glomerular Filt Rate > 60; Glucose 249 mg/dL (65-110); Potassium 4.4 mmol/L (3.4-5.0); Sodium 132 mmol/L (137-145)
--- NOTE | 2024-12-11 13:11 | PC.NURSE ---
Spoke with Dr. Tavares regarding sending referral to Dr. Jett for Endocrine follow up. Initial DSMT and MNT started [facility] to [facility].
[2024-12-11 13:48] LABS: Anion Gap 4 mmol/L (4-12); Blood Urea Nitrogen 11 mg/dL (7-17); Calcium 7.8 mg/dL (8.4-10.2); Carbon Dioxide 16 mmol/L (22-30); Chloride 114 mmol/L (98-107); Estimated CRCL calculation 81 ml/min; Estimated Glomerular Filt Rate > 60; Glucose 168 mg/dL (65-110); Potassium 4.0 mmol/L (3.4-5.0); Sodium 134 mmol/L (137-145)
[2024-12-11] MEDS: INSULIN GLARGINE (*BKC) 100 UNITS/ML 20 UNITS SUB-Q (14:10)
[2024-12-12] VITALS (7 sets, daily range): BP systolic 99–129; BP diastolic 51–93; PULSE 53–82; RESP 12–18; TEMP 36.3–36.8; O2SAT 99–100; BMI 21.0
[2024-12-12 04:04] LABS: Hematocrit 29.8 % (37.0-47.0); Hemoglobin 10.2 g/dL (12.0-15.0); Immature Granulocyte Percent A 0.5 % (0-0.5); Lymphocytes Absolute Auto 2.73 K/mm3 (0.9-3.2); Mean Corpuscular HGB Conc 34.2 g/dl (32-36); Mean Corpuscular Hemoglobin 29.3 pg (26-34); Mean Corpuscular Volume 85.6 fl (80-100); Nucleated Red Blood Cells Absolute Auto 0.000 K/mm3 (0.0-0.012); Nucleated Red Blood Cells Perc 0.0 % (0.0-0.2); Platelet Count Result 217 k/mm3 (150-375); Red Blood Count 3.48 M/mm3 (4.2-5.4); White Blood Count 12.7 K/mm3 (4.5-10.0)
[2024-12-12 04:28] LABS: Alanine Aminotransferase 15 U/L (6-35); Albumin Level 2.8 g/dL (3.5-5.1); Alkaline Phosphatase 56 U/L (38-126); Anion Gap 4 mmol/L (4-12); Aspartate Amino Transferase 26 U/L (14-36); Bilirubin,Total 0.4 mg/dL (0.2-1.3); Blood Urea Nitrogen 9 mg/dL (7-17); Calcium 8.1 mg/dL (8.4-10.2); Carbon Dioxide 19 mmol/L (22-30); Chloride 113 mmol/L (98-107); Estimated CRCL calculation 80 ml/min; Estimated Glomerular Filt Rate > 60; Glucose 130 mg/dL (65-110); Magnesium 1.8 mg/dL (1.6-2.3); Potassium 4.0 mmol/L (3.4-5.0); Sodium 136 mmol/L (137-145); Total Protein 5.2 g/dL (6.3-8.2)
[2024-12-12] MEDS: ENOXAPARIN 40 MG/0.4 ML SYRINGE SUB-Q (08:51)
[2024-12-12] MEDS: ESCITALOPRAM OXALATE 10 MG TABLET PO (08:51)
[2024-12-12] MEDS: INSULIN GLARGINE (*BKC) 100 UNITS/ML 16 UNITS SUB-Q (08:51)
--- NOTE | 2024-12-12 09:08 | WPDINTPN ---
Progress Note: A&P Assessment and Plan (1) DKA (diabetic ketoacidosis): Code(s): E11.10 - Type 2 diabetes mellitus with ketoacidosis without coma Status: Acute Assessment and Plan: 12/10: Patient presented with hyperglycemia, nausea, vomiting, abdominal pain, myalgia and dizziness. In the ER patient had anion gap metabolic acidosis likely related to diabetic ketoacidosis with elevated beta hydroxybutyrate, UA positive for ketones and glucose -patient was given total of 4 L IV fluid bolus -remains on insulin infusion per DKA protocol -BMPs per DKA protocol -12/11: Transition to long-acting insulin and sliding scale insulin and diabetic diet -Hemoglobin A1c 9.9 this admission -will decrease Lantus to 16 units this morning, -louver mortiser operator to evaluate the patient (2) Hyperkalemia: Code(s): E87.5 - Hyperkalemia Status: Acute Assessment and Plan: Resolved likely related to metabolic acidosis (3) Sore throat: Code(s): J02.9 - Acute pharyngitis, unspecified Status: Acute Assessment and Plan: Group a strep RT PCR ordered -will order Chloraseptic p.r.n. Plan DVT prophylaxis: Lovenox Stress ulcer prophylaxis: Not indicated Nutrition: Diabetic diet Code Status: Full Critical Care Time Spent: 31 minutes Patient may be transferred to the medical floor Discussed with patient and her mother at bedside and updated them with patient's condition and plan of care. I answered all questions Due to a high probability of clinically significant, life threatening deterioration, the patient required my highest level of preparedness to intervene emergently and I personally spent this critical care time directly and personally managing the patient. This critical care time included obtaining a history; examining the patient; pulse oximetry; ordering and review of studies; arranging urgent treatment with development of a management plan; evaluation of patient's response to treatment; frequent reassessment; and discussions with other providers. It was exclusive of separately billable procedures and treating other patients and teaching time. Please see Assessment and Plan section and the rest of the note for further information on patient assessment and treatment This dictation may have been done utilizing a voice recognition system. Attempts have been made to correct errors. However, there may be uncorrected grammatical, spelling, and recognitions errors present. Subjective Date/time seen: 12/12/24 09:08 Interval history: Reason for consult:Diabetic ketoacidosis, hyperglycemia, abdominal pain, nausea, vomiting, myalgias, dizziness 12/12/2024: Patient seen and examined in the ICU, is awake, alert. Was transition to Lantus and sliding scale insulin yesterday, complains of sore throat, denies any nausea, vomiting, abdominal pain. Review of Systems Review of Systems: All systems reviewed & are unremarkable except as noted in HPI and below Exam Narrative: General: Pleasant female in no acute distress HEENT:? Pupils equal reactive, sclera is clear, posterior pharyngeal wall without any edema, exudate or swelling, mild erythema. Uvula is midline Neck:? Supple, no lymphadenopathy Respiratory:? Clear to auscultation bilaterally, no wheezing, adequate air entry Cardiac:? S1-S2 normal, regular rate and rhythm Abdomen:? Soft, nontender, nondistended, normoactive bowel sounds Extremities:? No edema, palpable pedal pulses Neuro:? Awake, alert, oriented, nonfocal Skin:? No skin lesions noted Psych:? Normal mentation and affect Objective Data Vital Signs Vital Signs: Vital Signs - 24 hr 12/11/24 09:44 12/11/24 10:00 12/11/24 10:00 Temperature Pulse Rate 98 98 Respiratory Rate 16 Blood Pressure 98/53 L Pulse Oximetry 100 100 Oxygen Delivery Room Air 12/11/24 12:00 12/11/24 12:00 12/11/24 12:00 Temperature 97.8 F Pulse Rate 100 100 100 Respiratory Rate 18 18 Blood Pressure Pulse Oximetry 100 100 Oxygen Delivery Room Air 12/11/24 12:00 12/11/24 14:00 12/11/24 14:00 Temperature Pulse Rate 96 95 Respiratory Rate 16 Blood Pressure 86/65 L 101/52 L Pulse Oximetry 99 Oxygen Delivery 12/11/24 16:00 12/11/24 16:00 12/11/24 16:00 Temperature Pulse Rate 106 H 106 H 106 H Respiratory Rate 22 H 22 H Blood Pressure 96/54 L Pulse Oximetry 99 99 Oxygen Delivery Room Air 12/11/24 18:00 12/11/24 18:00 12/11/24 19:36 Temperature Pulse Rate 105 H 105 H 98 Respiratory Rate 26 H 13 Blood Pressure 126/61 Pulse Oximetry 99 Oxygen Delivery Room Air 12/11/24 20:00 12/11/24 20:00 12/11/24 22:00 Temperature 97.7 F Pulse Rate 83 79 82 Respiratory Rate 17 Blood Pressure 118/67 Pulse Oximetry 99 Oxygen Delivery 12/11/24 22:00 12/11/24 22:08 12/12/24 00:00 Temperature Pulse Rate 82 82 Respiratory Rate 12 15 Blood Pressure 95/59 L 99/62 L Pulse Oximetry 99 99 99 Oxygen Delivery Room Air 12/12/24 00:00 12/12/24 00:00 12/12/24 02:00 Temperature Pulse Rate 80 74 70 Respiratory Rate 12 Blood Pressure Pulse Oximetry 99 Oxygen Delivery Room Air 12/12/24 02:00 12/12/24 04:00 12/12/24 04:00 Temperature 97.4 F L Pulse Rate 70 80 66 Respiratory Rate 15 12 12 Blood Pressure 102/69 101/51 L Pulse Oximetry 99 99 99 Oxygen Delivery Room Air 12/12/24 04:00 12/12/24 06:00 12/12/24 06:00 Temperature Pulse Rate 79 53 L 72 Respiratory Rate 16 Blood Pressure 123/93 H Pulse Oximetry 99 Oxygen Delivery 12/12/24 07:55 12/12/24 08:00 12/12/24 08:00 Temperature 98.3 F Pulse Rate 61 60 Respiratory Rate 18 Blood Pressure 128/91 H Pulse Oximetry 100 Oxygen Delivery Room Air Intake/Output Intake/Output: Intake & Output 12/09/24 12/10/24 12/11/24 12/12/24 23:59 23:59 23:59 23:59 Intake Total 1999 2854.0 Output Total 800 Balance 1999 2054.0 Meds/Results Medications: Active Medications Generic Name Dose Route Start Last Admin Trade Name Freq PRN Reason Stop Dose Admin Acetaminophen 650 mg 12/10/24 22:27 Acetaminophen 325 Mg Tablet PO Q4H PRN Mild Pain (1-3) or Fever Dextrose 12.5 gm 12/10/24 22:22 Dextrose 50% 25 Gm/50 Ml Syringe IV PUSH PRN PRN Hypoglycemia Protocol Enoxaparin Sodium 40 mg 12/11/24 09:00 12/12/24 08:51 Enoxaparin 40 Mg/0.4 Ml Syringe SUB-Q 40 mg DAILY HILTON Administration Escitalopram Oxalate 10 mg 12/11/24 09:00 12/12/24 08:51 Escitalopram Oxalate 10 Mg Tablet PO 10 mg DAILY HILTON Administration Glucagon 1 mg 12/10/24 22:22 Glucagon For Inj 1 Mg Vial IM PRN PRN Hypoglycemia Protocol Glucose 15 gm 12/10/24 22:22 Glucose Oral Gel 15 Gm Of Glucse In 37.5 Gm Tube PO PRN PRN Hypoglycemia Protocol Dextrose 1,000 mls @ 100 mls/hr 12/10/24 22:22 Dextrose 5% 1,000 Ml IVPB PRN PRN Hypoglycemia Protocol Insulin Aspart 2 - 4 units 12/11/24 21:00 12/12/24 08:50 Insulin Aspart (*Bkc) 100 Units/Ml SUB-Q Not Given HS HILTON Protocol Insulin Aspart 4 - 8 units 12/11/24 17:00 12/12/24 08:42 Insulin Aspart (*Bkc) 100 Units/Ml SUB-Q Not Given TIDWM HILTON Protocol Insulin Glargine 16 units 12/12/24 09:00 12/12/24 08:51 Insulin Glargine (*Bkc) 100 Units/Ml SUB-Q 16 units DAILY HILTON Administration Ondansetron HCl 4 mg 12/10/24 22:22 Ondansetron Inj 4 Mg/2 Ml Vial IV PUSH Q4H PRN Nausea And Vomiting Phenol 1 spray 12/12/24 09:01 Phenol/Sod Pheno Mason Foy (*Bkc) MUCOUS MEM PRN PRN Sore Throat Trazodone HCl 25 mg 12/11/24 02:42 Trazodone Hcl 25 Mg Tablet PO HS PRN insomnia Radiology Results: ITS Impressions Chest X-Ray 12/11/24 13:16 IMPRESSION: 1: NO ACUTE CARDIOPULMONARY DISEASE. Labs Labs: Laboratory Results - last 24 hr 12/11/24 12/11/24 12/11/24 09:10 09:58 11:02 WBC RBC Hgb Hct MCV MCH MCHC RDW Plt Count MPV Immature Gran % (Auto) Neut % (Auto) Lymph % (Auto) [place] % (Auto) Eos % (Auto) Baso % (Auto) Lymph # (Auto) [place] # (Auto) Eos # (Auto) Baso # (Auto) Abs Immat Gran (auto) Absolute Neuts (auto) Absolute Nucleated RBC Nucleated RBC % Sodium 132 L Potassium 4.4 Chloride 112 H Carbon Dioxide 13 L Anion Gap 7 BUN 12 Creatinine 0.77 Estim Creat Clear Calc 82 Estimated GFR > 60 Glucose 249 H POC Capillary Glucose 301 H 269 H Lactic Acid 0.7 Calcium 7.9 L Phosphorus Magnesium Total Bilirubin AST ALT Alkaline Phosphatase Total Protein Albumin 12/11/24 12/11/24 12/11/24 12:00 12:59 13:14 WBC RBC Hgb Hct MCV MCH MCHC RDW Plt Count MPV Immature Gran % (Auto) Neut % (Auto) Lymph % (Auto) [place] % (Auto) Eos % (Auto) Baso % (Auto) Lymph # (Auto) [place] # (Auto) Eos # (Auto) Baso # (Auto) Abs Immat Gran (auto) Absolute Neuts (auto) Absolute Nucleated RBC Nucleated RBC % Sodium 134 L Potassium 4.0 Chloride 114 H Carbon Dioxide 16 L Anion Gap 4 BUN 11 Creatinine 0.78 Estim Creat Clear Calc 81 Estimated GFR > 60 Glucose 168 H POC Capillary Glucose 197 H 170 H Lactic Acid Calcium 7.8 L Phosphorus Magnesium Total Bilirubin AST ALT Alkaline Phosphatase Total Protein Albumin 12/11/24 12/11/24 12/11/24 13:58 15:12 16:45 WBC RBC Hgb Hct MCV MCH MCHC RDW Plt Count MPV Immature Gran % (Auto) Neut % (Auto) Lymph % (Auto) [place] % (Auto) Eos % (Auto) Baso % (Auto) Lymph # (Auto) [place] # (Auto) Eos # (Auto) Baso # (Auto) Abs Immat Gran (auto) Absolute Neuts (auto) Absolute Nucleated RBC Nucleated RBC % Sodium Potassium Chloride Carbon Dioxide Anion Gap BUN Creatinine Estim Creat Clear Calc Estimated GFR Glucose POC Capillary Glucose 171 H 116 H 96 Lactic Acid Calcium Phosphorus Magnesium Total Bilirubin AST ALT Alkaline Phosphatase Total Protein Albumin 12/11/24 12/12/24 12/12/24 21:07 03:40 07:24 WBC 12.7 H RBC 3.48 L Hgb 10.2 L Hct 29.8 L MCV 85.6 MCH 29.3 MCHC 34.2 RDW 12.9 Plt Count 217 MPV 9.4 Immature Gran % (Auto) 0.5 Neut % (Auto) 71.5 Lymph % (Auto) 21.5 [place] % (Auto) 5.3 Eos % (Auto) 0.8 Baso % (Auto) 0.4 Lymph # (Auto) 2.73 [place] # (Auto) 0.7 H Eos # (Auto) 0.1 Baso # (Auto) 0.1 Abs Immat Gran (auto) 0.06 H Absolute Neuts (auto) 9.1 H Absolute Nucleated RBC 0.000 Nucleated RBC % 0.0 Sodium 136 L Potassium 4.0 Chloride 113 H Carbon Dioxide 19 L Anion Gap 4 BUN 9 Creatinine 0.79 Estim Creat Clear Calc 80 Estimated GFR > 60 Glucose 130 H POC Capillary Glucose 171 H 104 Lactic Acid Calcium 8.1 L Phosphorus 2.1 L Magnesium 1.8 Total Bilirubin 0.4 AST 26 ALT 15 Alkaline Phosphatase 56 Total Protein 5.2 L Albumin 2.8 L Quality VTE Prophylaxis VTE prophylaxis: pharmacologic ordered (Lovenox 40 mg subQ daily.)
--- NOTE | 2024-12-12 09:44 | PC.NURSE ---
This patient, Naty Braden, was transferred to [[facility]] on 12/12/24 at 0944. Personal belongings sent with patient. Report given to [Erika]. Appropriate documentation sent with patient.
[2024-12-12 09:47] LABS: Strep Group A RT-PCR NOT DETECTED (Negative)
[2024-12-12] MEDS: PHENOL/SOD PHENO SPRAY CHERRY (*BKC) 1 SPRAY MUCOUS MEM (10:20)
--- NOTE | 2024-12-12 16:41 | PM.DS ---
DS: Admitting Diagnosis Discharge Date 12/12/24 Admitting Diagnosis Nausea vomiting since 07:00 on the DS: Summary Hospital Course Hospital Course: 24 y/o female with childhood type I presented with hyperglycemia, nausea, vomiting, abdominal pain, myalgia and dizziness. In the ER patient had anion gap metabolic acidosis likely related to diabetic ketoacidosis with elevated beta hydroxybutyrate, UA positive for ketones and glucose, patient was admitted into ICU and was seen by residential director and treated with IV insulin and followed DKA protocol, patient anion gas closed and blood sugars are now close to normal, patient is clinically stable, her mother is present in the room, will discharge home today to follow up with her journeyman lineman as soon as possible. Time Spent with Patient Time attestation: Total time spent providing and/or coordinating discharge services: Exam Narrative: Patient is comfortable, NAD HEENT: eyes are clear and none icteric LUNGS:retraction ABD: not obese Lower extremities: no edema SKIN: nonjaundiced Neuro: grossly intact DS: Data Data Completed and Pending Labs on day of discharge: Labs from last 24 hours 12/12/24 12/12/24 12/12/24 11:03 09:18 07:24 WBC RBC Hgb Hct MCV MCH MCHC RDW Plt Count MPV Immature Gran % (Auto) Neut % (Auto) Lymph % (Auto) [place] % (Auto) Eos % (Auto) Baso % (Auto) Lymph # (Auto) [place] # (Auto) Eos # (Auto) Baso # (Auto) Abs Immat Gran (auto) Absolute Neuts (auto) Absolute Nucleated RBC Nucleated RBC % Sodium Potassium Chloride Carbon Dioxide Anion Gap BUN Creatinine Estim Creat Clear Calc Estimated GFR Glucose POC Capillary Glucose 163 H 104 Calcium Phosphorus Magnesium Total Bilirubin AST ALT Alkaline Phosphatase Total Protein Albumin Group A Strep (PCR) Not detected 12/12/24 12/11/24 12/11/24 03:40 21:07 16:45 WBC 12.7 H RBC 3.48 L Hgb 10.2 L Hct 29.8 L MCV 85.6 MCH 29.3 MCHC 34.2 RDW 12.9 Plt Count 217 MPV 9.4 Immature Gran % (Auto) 0.5 Neut % (Auto) 71.5 Lymph % (Auto) 21.5 [place] % (Auto) 5.3 Eos % (Auto) 0.8 Baso % (Auto) 0.4 Lymph # (Auto) 2.73 [place] # (Auto) 0.7 H Eos # (Auto) 0.1 Baso # (Auto) 0.1 Abs Immat Gran (auto) 0.06 H Absolute Neuts (auto) 9.1 H Absolute Nucleated RBC 0.000 Nucleated RBC % 0.0 Sodium 136 L Potassium 4.0 Chloride 113 H Carbon Dioxide 19 L Anion Gap 4 BUN 9 Creatinine 0.79 Estim Creat Clear Calc 80 Estimated GFR > 60 Glucose 130 H POC Capillary Glucose 171 H 96 Calcium 8.1 L Phosphorus 2.1 L Magnesium 1.8 Total Bilirubin 0.4 AST 26 ALT 15 Alkaline Phosphatase 56 Total Protein 5.2 L Albumin 2.8 L Group A Strep (PCR) Discharge Plan Discharge Attending physician on discharge: Valeria Montano Consulting providers: Yenifer Tavares; Shai Harris; Alvaro Headley Discharging Clinician: Jorje Ariza Patient Disposition: Home Activity: as tolerated Diet: diabetic Discharge Instructions: patient to follow up with her journeyman lineman and primary care provider as soon as possible, patient is instructed to closely monitor her blood sugars and dietary guideline, patient is instructed if any symptoms worsen to go to nearest ER. Patient Instructions: Antibiotic Form, Enoxaparin (By injection), Basic Carbohydrate Counting (DC) Patient Language: [place] Stand Alone Forms: General Discharge Information Follow-up/Referrals: PHYSICIAN NOT ON STAFF,NONSTAFF [Primary Care Provider] - Discharge Medications: New (DME) Dexcom G7 Temporary Help Agency Referral Clerk Misc See Rx Instructions .Route Qty: 1 0RF Rx Instructions: As directed Continued escitalopram oxalate 10 mg tablet 10 mg PO DAILY trazodone 50 mg tablet 25 mg PO HS PRN (Reason: insomnia) insulin lispro 100 unit/mL solution See Rx Instructions .ROUTE .COMPLEX Rx Instructions: insulin pump settings controlled by doctor (DME) Omnipod 5 G6-G7 Pods (Gen 5) Cartridge SUBCUT ondansetron 4 mg tablet,disintegrating 4 mg PO Q8H Qty: 10 0RF Date of admission: 12/10/24 23:11 Primary Care Provider: PHYSICIAN NOT ON STAFF,NONSTAFF Admitting Provider: Valeria Montano Attending physician on admission: Jorje Ariza Condition: Stable
--- NOTE | 2024-12-19 16:12 | PCCDE ---
DM educator courtesy follow up call completed. Pt working with PCP office to get referral for endo office (states unable to make appt at endo office until they have required paperwork. She states to her glucose being OK; it goes up and down not sharing actual numbers.
== END 2024-12-12 17:25 | disposition home or self-care (01) | DRG 639 ==
LOC: ANHED 23:16 → ANHICU 23:27 → ANH3MEDSUR 12-12 09:45
PROVIDERS: Internal Medicine; Admitting Provider Internal Medicine; Emergency Provider Student in an Organized Health Care Education/Training Program; Visit Provider Family Medicine
DX: E10.10 Type 1 diabetes mellitus with ketoacidosis without coma (principal); E87.5 Hyperkalemia; F41.8 Other specified anxiety disorders; J02.9 Acute pharyngitis, unspecified; F17.290 Nicotine dependence, other tobacco product, uncomplicated
CPT/HCPCS: 36415; 36600; 71045; 80048; 80053; 81003; 81025; 82010; 82805; 82948; 83036; 83605; 83690; 83735; 84100; 84443; 85018; 85025; 87641; 87651; 93005; 96361; 96374; 96375; 96376; 99285; A9270; J0612; J1650; J1815; J2270; J2405; J2470; J2765; J3480; J7030